=== PATIENT | male | born 1950 | race Caucasian/White ===

== ENCOUNTER 2016-08-03 17:17 | Inpatient (IN) | payer OTHER ==
[2016-08-03 17:39] VITALS: BMI 51.5
[2016-08-03] MEDS ORDERED: VANCOMYCIN 1,000 MG in DEXTROSE 5%-WATER - 250 ML IVPB ONE (19:34)
[2016-08-03] MEDS ORDERED: SODIUM CHLORIDE 500 ML IV STA (19:34)
[2016-08-03] MEDS ORDERED: VANCOMYCIN 1 GRAM (PRE-DOCKED) 250 ML IVPB ONE (19:39)
[2016-08-03 20:25] LABS: BASOPHIL 1.5 % (0-2.0); EOSINOPHIL 5.1 % (0-4.5); MCH 27.1 pg (25.7-33.7); MCHC 32.3 g/dl (32.0-35.9); MEAN PLT VOLUME 7.3 fl (7.5-11.1); NEUTROPHILS 65.8 % (42.8-82.8); PLATELET COUNT 376 K/MM3 (134-434); RDW 15.3 % (11.9-15.9); WHITE BLOOD COUNT 10.2 K/mm3 (4.0-10.0)
--- NOTE | 2016-08-03 20:43 | PDOC ---
History of Present Illness - General Chief Complaint: Wound Stated Complaint: ADMIT Time Seen by Provider: 08/03/16 19:20 History Source: Patient Exam Limitations: No Limitations - History of Present Illness Initial Comments: 08/03/16 20:37 66yo Male patient w/ PmHx: DM (borderline), Triple Bypass (2012), Obesity, HLD, Left foot ulcer 1.5 years presents to ED c/o needing admission for foot ulcers. Patient states he was recently admitted for 5 days and discharged from [facility]. While following up with wound care, patient reports Dr. Gonzales sent him to ED for admission. While at [facility] patient had surgical intervention to remove infected tissue (debridement). Patient reports that Dr. Gonzales is also concerned with newly developed ulcer to left small toe (dorsal aspect). Patient denies fever, cough, congestion, or any other complaints at this time. Wound Care- Dr. Gonzales Surgeon [facility]- Dr. Anglin Occurred: reports: other (Ongoing) Severity: Yes: moderate Lower Extremity Pain Location: left: 5th toe, heel Method of Injury: No: unknown, assault, burn, direct blow, fell, incised, motor vehicle accident, sports injury, twisted, other Modifying Factors: worse with: None, cold therapy, immobilization, pain medication, rest, other Lower Ext. Injury Location - Specific Injury Location Foot: right foot normal inspection, left foot soft tissue tenderness, left foot infection, left foot swelling, bilateral foot no evidence of injury, bilateral foot normal range of motion, bilateral foot non-tender Extremity Pain Location - Extremity Pain Location Extremity Pain Locations: left: 5th toe (Quarter size ulcer), heel (3x3 large ulcer) Past History - Travel Traveled outside of the country in the last 30 days: No Close contact w/someone who was outside of country & ill: No - Past Medical History Allergies/Adverse Reactions: Allergies Allergy/AdvReac Type Severity Reaction Status Date / Time No Known Allergies Allergy Verified 08/03/16 17:38 Home Medications: Ambulatory Orders Unobtainable 08/03/16 Anemia: No Asthma: No Cancer: No Cardiac Disorders: Yes (triple bypass 10/2011) CVA: No COPD: No CHF: No Dementia: No Diabetes: Yes (diet controlled) GI Disorders: No Disorders: No HTN: Yes Hypercholesterolemia: Yes Liver Disease: No Suicide Attempt (Hx): No Seizures: No Thyroid Disease: No - Surgical History Abdominal Surgery: No Appendectomy: No Cardiac Surgery: Yes (triple bypass) Cholecystectomy: No Lung Surgery: No Neurologic Surgery: No Orthopedic Surgery: Yes (arthroscopic lt knee sx) - Psycho/Social/Smoking Cessation Hx Anxiety: No Suicidal Ideation: No Smoking Status: Yes Smoking History: Current every day smoker Have you smoked in the past 12 months: Yes Number of Cigarettes Smoked Daily: 20 If you are a former smoker, when did you quit?: 1 week ago 10/2011 Information on smoking cessation initiated: No 'Breaking Loose' booklet given: 01/21/12 Hx Alcohol Use: No Drug/Substance Use Hx: No Substance Use Type: None Hx Substance Use Treatment: No Review of Systems - Review of Systems Able to Perform ROS?: Yes Is the patient limited Bulgarian proficient: No Constitutional: No: Chills, Fever Integumentary: Yes: Dryness, Erythema, Other (Lt foot Wound Ulcers noted to small toe and heel). No: Rash All Other Systems: Reviewed and Negative *Physical Exam - Vital Signs Last Vital Signs Temp Pulse Resp BP Pulse Ox 98.0 F 76 20 110/72 97 08/03/16 17:33 08/03/16 17:33 08/03/16 17:33 08/03/16 17:33 08/03/16 17:33 - Physical Exam General Appearance: Yes: Nourished, Appropriately Dressed. No: Apparent Distress, Mild Distress, Moderate Distress Neck: positive: Trachea midline, Supple. negative: Stridor, Lymphadenopathy (R) , Lymphadenopathy (L) Respiratory/Chest: positive: Lungs Clear, Normal Breath Sounds. negative: Chest Tender, Respiratory Distress, Accessory Muscle Use, Labored Respiration, Rapid RR Cardiovascular: positive: Regular Rhythm, Regular Rate Gastrointestinal/Abdominal: positive: Normal Bowel Sounds, Soft, Distended. negative: Tender, Guarding, Rebound, Tenderness Musculoskeletal: positive: Normal Inspection. negative: CVA Tenderness Extremity: positive: Normal Capillary Refill, Normal Inspection, Normal Range of Motion. negative: Pedal Edema, Swelling, Calf Tenderness, Erythema, Inflammation Integumentary: positive: Normal Color, Dry, Warm, Other (See HPI) Neurologic: positive: inspector automatic typewriter II-XII NML intact, Fully Oriented, Alert, Normal Mood/ Affect, Normal Response, Motor Strength / ED Treatment Course - LABORATORY CBC & Chemistry Diagram: 08/03/16 20:15 08/03/16 20:15 *DC/Admit/Observation/Transfer Diagnosis at time of Disposition: Local infection of wound Cellulitis Qualifiers: Site of cellulitis: extremity Site of cellulitis of extremity: lower extremity Laterality: left Qualified Code(s): L03.116 - Cellulitis of left lower limb - Discharge Dispostion Condition at time of disposition: Fair Admit: Yes
[2016-08-03 21:16] LABS: ALBUMIN 3.5 g/dl (3.4-5.0); ANION GAP 9 (8-16); CALCIUM 9.1 mg/dL (8.5-10.1); CO2 29 mmol/L (21-32); COCKROFT - GAULT 218.44; CREATININE 0.8 mg/dL (0.7-1.3); GLUCOSE,RANDOM 109 mg/dL (74-106); SGOT/AST 13 U/L (15-37); SGPT/ALT 26 U/L (12-78)
[2016-08-03 21:18] LABS: ALK PHOS 75 U/L (45-117); BILIRUBIN,TOTAL 0.5 mg/dL (0.2-1.0); TOT PROT 7.5 g/dl (6.4-8.2)
[2016-08-04] MEDS: AMPICILLIN NA/SULBACTAM NA 3 GM in SODIUM CHLORIDE 100 ML IVPB SCH ×2 (00:28→03:26)
--- NOTE | 2016-08-04 00:57 | HP ---
CHIEF COMPLAINT: left foot wound PCP: none; [facility] HISTORY OF PRESENT ILLNESS: This is a 66 year old male with a past medical history of HTN, HLD, CAD, borderline DM (on no meds) who presents to the ED from wound clinic. Pt was seen by Dr. Evans who felt that pt should be admitted for wound to Left 5th toe. Pt was recently admitted at [facility] from 07/25-07/30 for wound to left heel which was debrided. It is unclear if the 5th toe wound was debrided as well. Pt denies pain to foot or wounds. ER course was notable for: (1) WBC 10.2 Recent Travel: pt denies PAST MEDICAL HISTORY: HTN HLD CAD DM morbid obesity L foot ulcer x 1.5y PAST SURGICAL HISTORY: 3v CABG 2012 L knee arthoscopy Social History: Smoking: previous Alcohol: pt denies Drugs: pt denies Allergies No Known Allergies Allergy (Verified 08/03/16 17:38) HOME MEDICATIONS: unknown- pt states he takes a pill for his cholesterol, another for his BP, ASA 81mg and a "blood thinner" Attempted to call pt pharmacy to obtain current list, but Rx is closed. REVIEW OF SYSTEMS CONSTITUTIONAL: Absent: fever, chills, diaphoresis, generalized weakness, malaise, loss of appetite, weight change HEENT: Absent: rhinorrhea, nasal congestion, throat pain, throat swelling, difficulty swallowing, mouth swelling, ear pain, eye pain, visual changes CARDIOVASCULAR: Absent: chest pain, syncope, palpitations, irregular heart rate, lightheadedness , peripheral edema RESPIRATORY: Absent: cough, shortness of breath, dyspnea with exertion, orthopnea, wheezing, stridor, hemoptysis GASTROINTESTINAL: Absent: abdominal pain, abdominal distension, nausea, vomiting, diarrhea, constipation, melena, hematochezia GENITOURINARY: Absent: dysuria, frequency, urgency, hesitancy, hematuria, flank pain, genital pain MUSCULOSKELETAL: Absent: myalgia, arthralgia, joint swelling, back pain, neck pain SKIN: Present: wound to left foot Absent: rash, itching, pallor HEMATOLOGIC/IMMUNOLOGIC: Absent: easy bleeding, easy bruising, lymphadenopathy, frequent infections ENDOCRINE: Absent: unexplained weight gain, unexplained weight loss, heat intolerance, cold intolerance NEUROLOGIC: Absent: headache, focal weakness or paresthesias, dizziness, unsteady gait, seizure, mental status changes, bladder or bowel incontinence PSYCHIATRIC: Absent: anxiety, depression, suicidal or homicidal ideation, hallucinations. PHYSICAL EXAMINATION Vital Signs - 24 hr 3 08/03/16 08/03/16 17:33 19:19 Temperature 98.0 F Pulse Rate 76 Respiratory 20 Rate Blood Pressure 110/72 O2 Sat by Pulse 97 97 Oximetry (%) GENERAL: Awake, alert, and fully oriented, in no acute distress. HEAD: Normal with no signs of trauma. EYES: Pupils equal, round and reactive to light, extraocular movements intact, sclera anicteric, conjunctiva clear. No lid lag. EARS, NOSE, THROAT: Ears normal, nares patent, oropharynx clear without exudates. Moist mucous membranes. NECK: Normal range of motion, supple without lymphadenopathy, JVD, or masses. LUNGS: Breath sounds equal, clear to auscultation bilaterally. No wheezes, and no crackles. No accessory muscle use. HEART: Regular rate and rhythm, normal S1 and S2 without murmur, rub or gallop. ABDOMEN: + obese, Soft, nontender, not distended, normoactive bowel sounds, no guarding, no rebound, no masses. No hepatomegaly or splenomegaly. MUSCULOSKELETAL: Normal range of motion at all joints. No bony deformities or tenderness. No CVA tenderness. UPPER EXTREMITIES: 2+ pulses, warm, well-perfused. No cyanosis. No clubbing. No peripheral edema. LOWER EXTREMITIES: 2+ pulses, warm, well-perfused. No calf tenderness. 1+ edema LLE. no edema right. Left foot with ulcer to heel, 3.7cm x 3.0cm x 0.3cm, + granulation tissue, no necrotic tissue, left 5th toe: 1.5 x 1.6 x 0.5cm, + slough covering wound, bone exposed, + serosanguinous dc, no foul odor. surrounding skin with slight erythema. pedal pulses not palpable, As per wound note, present on doppler. NEUROLOGICAL: Cranial nerves II-XII intact. Normal speech. Normal gait. PSYCHIATRIC: Cooperative. Good eye contact. Appropriate mood and affect. SKIN: Warm, dry, normal turgor, no rashes or lesions noted, normal capillary refill. Laboratory Results - last 24 hr 3 08/03/16 08/03/16 20:15 20:15 WBC 10.2 H D RBC 5.61 H Hgb 15.2 Hct 47.1 MCV 84.0 MCHC 32.3 RDW 15.3 Plt Count 376 MPV 7.3 L Neutrophils % 65.8 Lymphocytes % 20.2 Monocytes % 7.4 Eosinophils % 5.1 H Basophils % 1.5 Sodium 136 Potassium 4.6 Chloride 98 Carbon Dioxide 29 Anion Gap 9 BUN 21 H Creatinine 0.8 D Creat Clearance w eGFR > 60 Random Glucose 109 H D Calcium 9.1 Total Bilirubin 0.5 AST 13 L D ALT 26 D Alkaline Phosphatase 75 Total Protein 7.5 Albumin 3.5 ASSESSMENT/PLAN: 66yM with PMH HTN, HLD, CAD, borderline DM presented to ED with chronic left foot heel ulcer and relatively new 5th toe wound. He is being admitted for further treatment. Left foot wound, 5th toe & heel - calcium alginate dressing to toe as recommended by podiatry - hydrogel to heel (if available) if not, wet to dry dressing - xray to r/o osteo - podiatry and vascular consultations - unasyn and vancomycin, ID consult HTN/HLD/CAD - will need to call [facility] ([phone]) in am to obtain list of medications. - cont ASA 81mg for now borderline DM - A1C in am - FSBS TIDAC and HS with novolog sliding scale. DVT PPX - heparin 5000u TID FEN - tolerating po fluids, defer IV - repeat labs in am - diabetic low sodium diet as tolerated Dispo: Pt currently requires inpatient care for management of his emergent condition and is expected to stay > 48h Visit type - Emergency Visit Emergency Visit: Yes ED Registration Date: 08/03/16 Care time: The patient presented to the Emergency Department on the above date and was hospitalized for further evaluation of their emergent condition. - New Patient This patient is new to me today: Yes Date on this admission: 08/04/16 - Critical Care Critical Care patient: No
--- NOTE | 2016-08-04 01:30 | PDOC ---
*Physical Exam - Vital Signs Last Vital Signs Temp Pulse Resp BP Pulse Ox 98.0 F 76 20 110/72 97 08/03/16 17:33 08/03/16 17:33 08/03/16 17:33 08/03/16 17:33 08/03/16 19:19 ED Treatment Course - LABORATORY CBC & Chemistry Diagram: 08/03/16 20:15 08/03/16 20:15 - ADDITIONAL ORDERS Additional order review: Laboratory Results 08/03/16 20:15 Sodium 136 Potassium 4.6 Chloride 98 Carbon Dioxide 29 Anion Gap 9 BUN 21 H Creatinine 0.8 D Creat Clearance w eGFR > 60 Random Glucose 109 H D Calcium 9.1 Total Bilirubin 0.5 AST 13 L D ALT 26 D Alkaline Phosphatase 75 Total Protein 7.5 Albumin 3.5 08/03/16 20:15 RBC 5.61 H MCV 84.0 MCHC 32.3 RDW 15.3 MPV 7.3 L Neutrophils % 65.8 Lymphocytes % 20.2 Monocytes % 7.4 Eosinophils % 5.1 H Basophils % 1.5 - Medications Given in the ED: ED Medications Discontinued Medications Generic Name Dose Route Start Last Admin Trade Name Freq PRN Reason Stop Dose Admin Sodium Chloride 500 mls @ 500 mls/hr 08/03/16 19:34 08/03/16 19:35 Normal Saline - IV 08/03/16 20:33 500 mls/hr ASDIR STA Administration Vancomycin HCl 1,000 mg/ 250 mls @ 250 mls/hr 08/03/16 19:34 08/03/16 19:35 Dextrose IVPB 08/03/16 20:33 250 mls/hr ONCE ONE Administration Protocol Medical Decision Making - Medical Decision Making 08/04/16 01:30 agree with care from JUANCARLOS Banks *DC/Admit/Observation/Transfer Diagnosis at time of Disposition: Wound infection Cellulitis Qualifiers: Site of cellulitis: extremity Site of cellulitis of extremity: lower extremity Laterality: left Qualified Code(s): L03.116 - Cellulitis of left lower limb - Discharge Dispostion Condition at time of disposition: Fair
[2016-08-04] MEDS ORDERED: HEPARIN NA (PORCINE) 5,000 UNITS/ML 1ML VIAL ONE (06:18)
[2016-08-04] MEDS: HEPARIN NA (PORCINE) 5,000 UNITS/ML 1ML VIAL SQ SCH ×3 (06:24→21:23)
[2016-08-04] MEDS: INSULIN SLIDING SCALE (NOVOLOG) 1 VIAL SQ SCH ×4 (06:25→21:22)
[2016-08-04 06:47] LABS: BASOPHIL 0.7 % (0-2.0); EOSINOPHIL 6.7 % (0-4.5); MCH 27.8 pg (25.7-33.7); MCHC 32.5 g/dl (32.0-35.9); MEAN CELL VOLUME 85.4 fl (80-96); MEAN PLT VOLUME 6.9 fl (7.5-11.1); NEUTROPHILS 65.3 % (42.8-82.8); PLATELET COUNT 299 K/MM3 (134-434); RDW 14.6 % (11.9-15.9); WHITE BLOOD COUNT 7.3 K/mm3 (4.0-10.0)
[2016-08-04 07:12] LABS: CALCIUM 8.5 mg/dL (8.5-10.1); COCKROFT - GAULT 218.44; CREATININE 0.8 mg/dL (0.7-1.3); PHOSPHOROUS 3.4 mg/dL (2.5-4.9)
--- NOTE | 2016-08-04 07:46 | PN ---
Progress Note (short form) - Note Progress Note: Podiatry Note Patient seen and evaluated yesterday in wound care clinic ( see note dated ) Patient has two wounds on his left foot: 1) 5th toe with bone exposed ( clinical OM) and 2)on his heel. Both wounds had no drainge no mal odor no crepitus Vital Signs Period Temp Pulse Resp BP Sys/Gomes Pulse Ox Last 24 Hr 97.8 F-98.0 F 62-76 18-20 110-130/72-75 96-97 Laboratory Last Values WBC 7.3 K/mm3 (4.0-10.0) 08/04/16 06:20 RBC 5.28 M/mm3 (4.00-5.60) 08/04/16 06:20 Hgb 14.7 GM/dL (11.7-16.9) 08/04/16 06:20 Hct 45.0 % (35.4-49) 08/04/16 06:20 MCV 85.4 fl (80-96) 08/04/16 06:20 MCHC 32.5 g/dl (32.0-35.9) 08/04/16 06:20 RDW 14.6 % (11.9-15.9) 08/04/16 06:20 Plt Count 299 K/MM3 (134-434) D 08/04/16 06:20 MPV 6.9 fl (7.5-11.1) L 08/04/16 06:20 Neutrophils % 65.3 % (42.8-82.8) 08/04/16 06:20 Lymphocytes % 18.3 % (8-40) 08/04/16 06:20 Monocytes % 9.0 % (3.8-10.2) 08/04/16 06:20 Eosinophils % 6.7 % (0-4.5) H 08/04/16 06:20 Basophils % 0.7 % (0-2.0) 08/04/16 06:20 Sodium 137 mmol/L (136-145) 08/04/16 06:20 Potassium 4.4 mmol/L (3.5-5.1) 08/04/16 06:20 Chloride 101 mmol/L (98-107) 08/04/16 06:20 Carbon Dioxide 29 mmol/L (21-32) 08/04/16 06:20 Anion Gap 7 (8-16) L 08/04/16 06:20 BUN 19 mg/dL (7-18) H 08/04/16 06:20 Creatinine 0.8 mg/dL (0.7-1.3) 08/04/16 06:20 Creat Clearance w eGFR > 60 (>60) 08/03/16 20:15 POC Glucometer 135.17331 UNITS (()) 08/04/16 06:24 Random Glucose 112 mg/dL (74-106) H 08/04/16 06:20 Calcium 8.5 mg/dL (8.5-10.1) 08/04/16 06:20 Phosphorus 3.4 mg/dL (2.5-4.9) 08/04/16 06:20 Magnesium 2.0 mg/dL (1.8-2.4) 08/04/16 06:20 Total Bilirubin 0.5 mg/dL (0.2-1.0) 08/03/16 20:15 AST 13 U/L (15-37) L D 08/03/16 20:15 ALT 26 U/L (12-78) D 08/03/16 20:15 Alkaline Phosphatase 75 U/L (45-117) 08/03/16 20:15 Total Protein 7.5 g/dl (6.4-8.2) 08/03/16 20:15 Albumin 3.5 g/dl (3.4-5.0) 08/03/16 20:15 A/P 1) Wound cultures 2) IV Abx as per Infxs Dz 3) Foot Xray left foot - order written 4) Collagenase both wounds daily - order written 5) Vasc consult Dr Toni Gomez
--- NOTE | 2016-08-04 07:50 | PN ---
Progress Note (short form) - Note Progress Note: ID Full note dictated Send from wound care Selected Entries 08/04/16 06:43 Temperature 97.8 F Pulse Rate [ 62 Left] Respiratory 18 Rate Blood Pressure 130/75 [Left Arm] LLE ulcer with serosanguinous drainage surrounding erythema DEEP Microbiology Laboratory Tests 08/03/16 08/04/16 20:15 06:20 WBC 10.2 H D Hgb 15.2 Plt Count 376 BUN 19 H Creatinine 0.8 Random Glucose 112 H Assessment Diabetic foot ulcer wit osteomyelitis Plan Vanco based on body weight along with Zosyn ESR CRP Dr Quan to see and evaluate for debridement MRI ? Kiko CEE
--- NOTE | 2016-08-04 08:35 | CONS ---
DATE OF CONSULTATION: DATE OF DICTATION: 08/04/2016 INFECTIOUS DISEASE CONSULTATION HISTORY OF PRESENT ILLNESS: This is a 66-year-old, diabetic, morbidly obese gentleman referred from the Wound Clinic for evaluation of a wound of the left 5th toe and the left heel. He was apparently seen by Dr. Quan, who felt he should be admitted for further hospital management. Of note is that the patient was treated July 25 to July 30 at [facility] for the same left heel wound, which was apparently debrided at that time. It is unclear as to whether or not an MRI may have been done or what other workup may have been done. He has no fever or chills here, and his white count is 10.2. He has no localizing complaints. PAST MEDICAL HISTORY: Includes hypertension, hyperlipidemia, coronary artery disease, diabetes, morbid obesity and chronic left foot ulcer. PAST SURGICAL HISTORY: Status post CABG in 2011, and history of left knee arthroscopy. MEDICATIONS: Medications include insulin. ALLERGIES: None known. SOCIAL HISTORY: No recent travel. Current every day smoker. No history of substance abuse. HIV status unknown. FAMILY HISTORY: Reviewed and noncontributory. REVIEW OF SYSTEMS: Respiratory: No cough, shortness of breath, hemoptysis. Cardiac: No chest pain, palpitations, syncope or murmur. History of CABG. Gastrointestinal: No abdominal pain, vomiting, nausea, diarrhea. Genitourinary: No dysuria, hematuria, urinary frequency or incontinence. Neuromuscular: No headaches, seizures, visual complaints, joint pains. PHYSICAL EXAMINATION: Vital Signs: His admitting temperature was 98, pulse 76, respirations 20, blood pressure 110/72, pulse oximetry 97%. Neck: Supple, without adenopathy. Lungs: Clear to percussion and auscultation. Heart: S1, S2. Regular rhythm, without murmur. Abdomen: Soft, nontender. Positive bowel sounds. Not distended. No organomegaly. Neurologic: Cranial nerves intact. Extremities: Left lower extremity with a heel ulcer measuring 4 x 3 cm, with granulation tissue, without necrosis. Left 5th toe 1.5 x 1.6 x 0.5-cm wound with exposed bone, serosanguineous drainage. No foul odor noted. Surrounding erythema. DIAGNOSTIC STUDIES: White count 10.2, hemoglobin 15.2, platelets 376. Creatinine 0.8, creatinine clearance greater than 60. Liver enzymes within normal limits. ASSESSMENT: A 66-year-old male with multiple comorbidities, including diabetes and morbid obesity, with coronary artery disease, who presents with left foot wounds , left 5th toe and heel, with a deep wound to bone, osteomyelitis likely, with surrounding cellulitis, recent admission to [facility] for debridement. Unsure of what workup may have been done at that time for osteomyelitis. RECOMMENDATIONS: I would empirically treat him with vancomycin based on body weight, and piperacillin/tazobactam. Obtain a sedimentation rate and CRP, and MRI of the foot. Surgical reevaluation with Dr. Quan regarding need for further surgical management intervention. May have to treat for osteomyelitis given deep wound to bone MARY ORDOÑEZ M.D. SEVERO/[id number] MTDD
[2016-08-04] MEDS: PIPERACILLIN/TAZOB 4.5 GM 100 ML IVPB SCH ×2 (11:45→17:59)
[2016-08-04] MEDS ORDERED: CARVEDILOL 3.125 MG TABLET (FP) ONE (11:47)
[2016-08-04] MEDS: LISINOPRIL 5 MG TABLET (FP) PO SCH (11:48)
[2016-08-04] MEDS ORDERED: LISINOPRIL 5 MG TABLET (FP) ONE (11:48)
[2016-08-04] MEDS: CARVEDILOL 6.25 MG TABLET (FP) PO SCH ×2 (11:48→21:23)
[2016-08-04] MEDS ORDERED: ASPIRIN COATED 81 MG TABLET.EC ONE (11:48)
[2016-08-04] MEDS: ASPIRIN COATED 81 MG TABLET.EC PO SCH (11:48)
[2016-08-04] MEDS: VANCOMYCIN 1,500 MG in DEXTROSE 5%-WATER - 500 ML IVPB SCH ×2 (12:51→22:09)
--- NOTE | 2016-08-04 13:05 | EKG ---
Test Reason : Blood Pressure : / mmHG Vent. Rate : 069 BPM Atrial Rate : 069 BPM P-R Int : 238 ms QRS Dur : 126 ms QT Int : 436 ms P-R-T Axes : 069 -22 090 degrees QTc Int : 467 ms POOR DATA QUALITY, INTERPRETATION MAY BE ADVERSELY AFFECTED SINUS RHYTHM WITH 1ST DEGREE A-V BLOCK INFERIOR INFARCT , AGE UNDETERMINED ABNORMAL ECG Confirmed by JIE CEE, GIGI ([id number]) on 08/04/2016 1:05:30 PM Referred By: Confirmed By:GIGI CERON MD
[2016-08-04] MEDS: COLLAGENASE CLOSTRIDIUM HIST. 30 GRAMS TUBE TP SCH (15:56)
--- NOTE | 2016-08-04 17:50 | CONSULT ---
Consult - Alcohol/Substance Use Hx Alcohol Use: No - Smoking History Smoking history: Current every day smoker Have you smoked in the past 12 months: Yes Aproximately how many cigarettes per day: 20 If you are a former smoker, when did you quit?: 1 week ago 10/2011 Home Medications - Allergies Allergies/Adverse Reactions: Allergies Allergy/AdvReac Type Severity Reaction Status Date / Time No Known Allergies Allergy Verified 08/03/16 17:38 - Home Medications Home Medications: Ambulatory Orders Amox-Tr/K Cl [Augmentin - 875Mg Tablet] 1 tab PO BID 08/04/16 Carvedilol [Coreg -] 6.25 mg PO Q12H 08/04/16 Lisinopril 5 mg PO DAILY 08/04/16 Simvastatin 40 mg PO DAILY 08/04/16 Physical Exam Vital Signs: Vital Signs Temperature 98.0 F 08/04/16 13:35 Pulse Rate 61 08/04/16 13:35 Respiratory Rate 20 08/04/16 13:35 Blood Pressure 120/70 08/04/16 13:35 O2 Sat by Pulse Oximetry (%) 95 08/04/16 13:46 Labs: CBC, BMP 08/04/16 06:20 08/04/16 06:20 Assessment/Plan Vascular Surgery This is a 66 year old male with a past medical history of HTN, HLD, CAD, borderline DM (on no meds) who presents to the ED from wound clinic. Pt was seen by Dr. Evans who felt that pt should be admitted for wound to Left 5th toe. Pt was recently admitted at [facility] from 07/25-07/30 for wound to left heel which was debrided. It is unclear if the 5th toe wound was debrided as well. Pt denies pain to foot or wounds. ER course was notable for: (1) WBC 10.2 Recent Travel: pt denies PAST MEDICAL HISTORY: HTN HLD CAD DM morbid obesity L foot ulcer x 1.5y PAST SURGICAL HISTORY: 3v CABG 2011 L knee arthoscopy PE Head - NC/At Lung - cTA Heart - RRR abd - soft,nt,nd ext - Left foot -- heel and 5th toe ulcer with bone exposed. Palpable PT pulse, no dP pulse. A/P Santyl to all wounds. Probably osteo of left 5th toe. MRI is ordered. Will order CTA to look at runoff into foot Pt is a current smoker. Will need HBO as outpt. Might need angiogram depending on what CTA shows. Bienvenido Gomez DO
--- NOTE | 2016-08-04 18:15 | PN ---
Physical Exam: SUBJECTIVE: Patient seen and examined in bed. OBJECTIVE: Vital Signs 3 Period Temp Pulse Resp BP Sys/Gomes Pulse Ox Last 24 Hr 97.8 F-98.3 F 61-72 18-22 112-140/60-81 95-97 GENERAL: The patient is awake, alert, and fully oriented, in no acute distress. HEAD: Normal with no signs of trauma. EYES: PERRL, extraocular movements intact, sclera anicteric, conjunctiva clear. No ptosis. ENT: Ears normal, nares patent, oropharynx clear without exudates, moist mucous membranes. NECK: Trachea midline, full range of motion, supple. LUNGS: Breath sounds equal, clear to auscultation bilaterally, no wheezes, no crackles, no accessory muscle use. HEART: Regular rate and rhythm, S1, S2 without murmur, rub or gallop. ABDOMEN: Soft, nontender, nondistended, normoactive bowel sounds, no guarding, no rebound, no hepatosplenomegaly, no masses. Obese abdomen. EXTREMITIES: 2+ posterior tibial pulses. Doppler pulses on dorsalis pedis bilaterally. warm, well-perfused, no edema. Open 1cm circular ulcer to left 5th digit on foot. Exposed bone at center of wound s/p debridement at OSH. No drainage noted. Granulated tissue present. 2cm circular wound noted to plantar surface of left heel. No drainage noted. Granulated tissue present. NEUROLOGICAL: Cranial nerves II through XII grossly intact. Normal speech, gait not observed. PSYCH: Normal mood, normal affect. SKIN: Warm, dry, normal turgor, no rashes or lesions noted. Open 1cm circular ulcer to left 5th digit on foot. Exposed bone at center of wound s/p debridement at OSH. No drainage noted. Granulated tissue present. 2cm circular wound noted to plantar surface of left heel. No drainage noted. Granulated tissue present. Laboratory Results - last 24 hr 3 08/04/16 08/04/16 08/04/16 01:42 06:20 06:20 WBC 7.3 RBC 5.28 Hgb 14.7 Hct 45.0 MCV 85.4 MCHC 32.5 RDW 14.6 Plt Count 299 D MPV 6.9 L Neutrophils % 65.3 Lymphocytes % 18.3 Monocytes % 9.0 Eosinophils % 6.7 H Basophils % 0.7 Sodium 137 Potassium 4.4 Chloride 101 Carbon Dioxide 29 Anion Gap 7 L BUN 19 H Creatinine 0.8 POC Glucometer Random Glucose 112 H Hemoglobin A1c % 6.3 H Calcium 8.5 Phosphorus 3.4 Magnesium 2.0 C-Reactive Protein 3 08/04/16 08/04/16 08/04/16 06:20 06:24 12:43 WBC RBC Hgb Hct MCV MCHC RDW Plt Count MPV Neutrophils % Lymphocytes % Monocytes % Eosinophils % Basophils % Sodium Potassium Chloride Carbon Dioxide Anion Gap BUN Creatinine POC Glucometer 135.08378 114.52606 Random Glucose Hemoglobin A1c % Calcium Phosphorus Magnesium C-Reactive Protein Cancelled 3 08/04/16 16:20 WBC RBC Hgb Hct MCV MCHC RDW Plt Count MPV Neutrophils % Lymphocytes % Monocytes % Eosinophils % Basophils % Sodium Potassium Chloride Carbon Dioxide Anion Gap BUN Creatinine POC Glucometer 166 Random Glucose Hemoglobin A1c % Calcium Phosphorus Magnesium C-Reactive Protein Active Medications 3 Generic Name Dose Route Start Last Admin Trade Name Freq PRN Reason Stop Dose Admin Aspirin 81 mg 08/04/16 10:00 08/04/16 11:48 Ecotrin - PO 81 mg DAILY DIXIE Administration Carvedilol 6.25 mg 08/04/16 10:00 08/04/16 11:48 Coreg - PO 6.25 mg BID DIXIE Administration Collagenase 1 applic 08/04/16 10:00 08/04/16 15:56 Santyl - TP 1 applic DAILY DIXIE Administration Heparin Sodium (Porcine) 5,000 unit 08/04/16 06:00 08/04/16 13:38 Heparin - SQ 5,000 unit TID DIXIE Administration Vancomycin HCl 1,500 mg/ 500 mls @ 250 mls/hr 08/04/16 10:00 08/04/16 12:51 Dextrose IVPB 250 mls/hr BID DIXIE Administration Protocol Piperacillin Sod/Tazobactam Sod 100 mls @ 200 mls/hr 08/04/16 10:00 08/04/16 17 :59 Zosyn 4.5gm Ivpb (Pre-Docked) IVPB 200 mls/hr Q8H-IV DIXIE Administration Protocol Insulin Aspart 1 vial 08/04/16 07:00 08/04/16 16:24 Novolog Vial Sliding Scale - SQ 2 units ACHS DIXIE Administration Protocol Lisinopril 5 mg 08/04/16 10:00 08/04/16 11:48 Prinivil PO 5 mg DAILY DIXIE Administration ASSESSMENT/PLAN: A: This is a 66 yo man with h/o HTN, HLD, CAD, CABG x3v and diet controlled DM who presented to ED with clinical osteomyelitis from wound clinic. He states he had wound debridement done at [facility] "last week." P: arterial ulcers with exposed bone in left foot -continue vanc and Zosyn -ID Kiko following -CTA foot per surgery -surgery Gomez following -hyperbaric as outpatient Leukocytosis -resolved -trend CBC HTN -well controlled -continue Coreg CAD -daily ASA DM -A1c 6.4 -FS QACHS -SS for tight glycemic control F/E/N -diabetic diet Dispo- Patient currently needs continued inpatient evaluation for acute medical issues. Code Status: FULL CODE Visit type - Emergency Visit Emergency Visit: Yes ED Registration Date: 08/04/16 Care time: The patient presented to the Emergency Department on the above date and was hospitalized for further evaluation of their emergent condition. - New Patient This patient is new to me today: Yes Date on this admission: 08/05/16 - Critical Care Critical Care patient: No
[2016-08-04] MEDS ORDERED: PICC LINE 8 ML FLUSH PROTOCOL IVPUSH PRN (19:17)
[2016-08-05] MEDS: PIPERACILLIN/TAZOB 4.5 GM 100 ML IVPB SCH ×3 (01:39→17:26)
[2016-08-05] MEDS: HEPARIN NA (PORCINE) 5,000 UNITS/ML 1ML VIAL SQ SCH ×3 (06:00→21:25)
[2016-08-05] MEDS: INSULIN SLIDING SCALE (NOVOLOG) 1 VIAL SQ SCH ×4 (06:02→21:18)
[2016-08-05 08:25] LABS: BASOPHIL 0.9 % (0-2.0); EOSINOPHIL 6.5 % (0-4.5); MCH 27.6 pg (25.7-33.7); MCHC 32.6 g/dl (32.0-35.9); MEAN CELL VOLUME 84.9 fl (80-96); MEAN PLT VOLUME 7.4 fl (7.5-11.1); NEUTROPHILS 65.2 % (42.8-82.8); PLATELET COUNT 316 K/MM3 (134-434); WHITE BLOOD COUNT 7.5 K/mm3 (4.0-10.0)
[2016-08-05 09:14] LABS: ALBUMIN 3.5 g/dl (3.4-5.0); ALK PHOS 66 U/L (45-117); ANION GAP 9 (8-16); BILIRUBIN,TOTAL 0.5 mg/dL (0.2-1.0); CALCIUM 9.1 mg/dL (8.5-10.1); CO2 29 mmol/L (21-32); COCKROFT - GAULT 218.44; CREATININE 0.8 mg/dL (0.7-1.3); GLUCOSE,RANDOM 104 mg/dL (74-106); SGOT/AST 11 U/L (15-37); SGPT/ALT 23 U/L (12-78); TOT PROT 7.2 g/dl (6.4-8.2)
[2016-08-05 09:33] LABS: C-REACTIVE PROTEIN 2.3 MG/DL (0.00-0.3)
[2016-08-05] MEDS: ASPIRIN COATED 81 MG TABLET.EC PO SCH (09:40)
[2016-08-05] MEDS: LISINOPRIL 5 MG TABLET (FP) PO SCH (09:40)
[2016-08-05] MEDS: CARVEDILOL 6.25 MG TABLET (FP) PO SCH ×2 (09:40→21:25)
[2016-08-05] MEDS: VANCOMYCIN 1,500 MG in DEXTROSE 5%-WATER - 500 ML IVPB SCH (09:41)
[2016-08-05] MEDS: COLLAGENASE CLOSTRIDIUM HIST. 30 GRAMS TUBE TP SCH (09:42)
--- NOTE | 2016-08-05 13:56 | PN ---
Progress Note (short form) - Note Progress Note: ID vancomycin and Zosyn day 1 Vascular surgery note reviewed Selected Entries 08/05/16 06:00 Temperature 97.5 F L Pulse Rate 55 L Respiratory 20 Rate Blood Pressure 112/61 Footulcers left 5th toe and plantar foot Microbiology 08/04/16 01:36 Foot - Left Lateral Wound Culture - Preliminary NO GROWTH OBTAINED AFTER 24 HOURS INCUBATION, REINCUBATED. 08/04/16 01:36 Foot - Left Heel Wound Culture - Preliminary Staphylococcus Coagulase Neg 08/03/16 20:15 Blood - Peripheral Venous Blood Culture - Preliminary NO GROWTH OBTAINED AFTER 24 HOURS, INCUBATION TO CONTINUE FOR 4 DAYS. 08/03/16 20:15 Blood - Peripheral Venous Blood Culture - Preliminary NO GROWTH OBTAINED AFTER 24 HOURS, INCUBATION TO CONTINUE FOR 4 DAYS. Laboratory Tests 08/05/16 08/05/16 08/05/16 06:00 07:10 07:10 WBC 7.5 Hgb 15.0 Plt Count 316 ESR 57 H C-Reactive Protein 2.3 H Assessment Foot wounds foot with osteo Plan Continue current therapy Vanco levels MRI HBO Kiko CEE
--- NOTE | 2016-08-05 14:08 | PN ---
Progress Note (short form) - Note Progress Note: Podiatry Note S/ Patient seen and evaluated has no new complaints denies pain O/ A/A/Ox3 in NAD Patient has two wounds on his left foot: 1) 5th toe with bone exposed ( clinical OM) and 2)on his heel. Both wounds had no drainge no mal odor no crepitus Vital Signs Period Temp Pulse Resp BP Sys/Gomes Pulse Ox Last 24 Hr 97.5 F-98.2 F 55-67 18-21 108-121/61-79 95 Laboratory Last Values WBC 7.5 K/mm3 (4.0-10.0) 08/05/16 07:10 RBC 5.41 M/mm3 (4.00-5.60) 08/05/16 07:10 Hgb 15.0 GM/dL (11.7-16.9) 08/05/16 07:10 Hct 45.9 % (35.4-49) 08/05/16 07:10 MCV 84.9 fl (80-96) 08/05/16 07:10 MCHC 32.6 g/dl (32.0-35.9) 08/05/16 07:10 RDW 15.0 % (11.9-15.9) 08/05/16 07:10 Plt Count 316 K/MM3 (134-434) 08/05/16 07:10 MPV 7.4 fl (7.5-11.1) L 08/05/16 07:10 Neutrophils % 65.2 % (42.8-82.8) 08/05/16 07:10 Lymphocytes % 20.5 % (8-40) 08/05/16 07:10 Monocytes % 6.9 % (3.8-10.2) 08/05/16 07:10 Eosinophils % 6.5 % (0-4.5) H 08/05/16 07:10 Basophils % 0.9 % (0-2.0) 08/05/16 07:10 ESR 57 mm/hr (0-20) H 08/05/16 06:00 Sodium 135 mmol/L (136-145) L 08/05/16 07:10 Potassium 4.7 mmol/L (3.5-5.1) 08/05/16 07:10 Chloride 97 mmol/L (98-107) L 08/05/16 07:10 Carbon Dioxide 29 mmol/L (21-32) 08/05/16 07:10 Anion Gap 9 (8-16) 08/05/16 07:10 BUN 15 mg/dL (7-18) D 08/05/16 07:10 Creatinine 0.8 mg/dL (0.7-1.3) 08/05/16 07:10 Creat Clearance w eGFR > 60 (>60) 08/05/16 07:10 POC Glucometer 128 UNITS (()) 08/05/16 10:45 Random Glucose 104 mg/dL (74-106) 08/05/16 07:10 Hemoglobin A1c % 6.3 % (4.8-6.0) H 08/04/16 01:42 Calcium 9.1 mg/dL (8.5-10.1) 08/05/16 07:10 Phosphorus 3.4 mg/dL (2.5-4.9) 08/04/16 06:20 Magnesium 2.0 mg/dL (1.8-2.4) 08/04/16 06:20 Total Bilirubin 0.5 mg/dL (0.2-1.0) 08/05/16 07:10 AST 11 U/L (15-37) L 08/05/16 07:10 ALT 23 U/L (12-78) 08/05/16 07:10 Alkaline Phosphatase 66 U/L (45-117) 08/05/16 07:10 C-Reactive Protein 2.3 MG/DL (0.00-0.3) H 08/05/16 07:10 Total Protein 7.2 g/dl (6.4-8.2) 08/05/16 07:10 Albumin 3.5 g/dl (3.4-5.0) 08/05/16 07:10 Microbiology 08/04/16 01:36 Wound Culture - Preliminary Foot - Left Lateral NO GROWTH OBTAINED AFTER 24 HOURS INCUBATION, REINCUBATED. 08/04/16 01:36 Wound Culture - Preliminary Foot - Left Heel Staphylococcus Coagulase Neg 08/03/16 20:15 Blood Culture - Preliminary Blood - Peripheral Venous NO GROWTH OBTAINED AFTER 24 HOURS, INCUBATION TO CONTINUE FOR 4 DAYS. 08/03/16 20:15 Blood Culture - Preliminary Blood - Peripheral Venous NO GROWTH OBTAINED AFTER 24 HOURS, INCUBATION TO CONTINUE FOR 4 DAYS. A/P 1) Wound cultures noted 2) IV Abx as per Infxs Dz 3) Foot X-ray left foot - reviewed no gross osseous destruction, most likely subacute OM not needing surgical management at this time 4) Wound Care Instructions: Continue Collagenase both wounds daily 5) Vasc consult noted, CTA reviewed most likely will need intervetion
--- NOTE | 2016-08-05 15:08 | PN ---
Progress Note (short form) - Note Progress Note: VAscular Surgery Pt seen and examined. CTA not officially read as of yet. Images reviewed -- pt has tibial disease in left lower ext. Will need angiogram. Please medically clear. Can do early next week. Bienvenido Gomez DO
--- NOTE | 2016-08-05 18:29 | PN ---
Physical Exam: SUBJECTIVE: Patient seen and examined. Sitting on edge of bed vigorously eating lunch. OBJECTIVE: Vital Signs Period Temp Pulse Resp BP Sys/Gomes Pulse Ox Last 24 Hr 97.5 F-98.2 F 55-62 18-20 108-153/61-80 95-95 GENERAL: The patient is awake, alert, and fully oriented, in no acute distress. HEAD: Normal with no signs of trauma. EYES: PERRL, extraocular movements intact, sclera anicteric, conjunctiva clear. No ptosis. LUNGS: Breath sounds equal, clear to auscultation bilaterally, no wheezes, no crackles, no accessory muscle use. HEART: Regular rate and rhythm, S1, S2 without murmur, rub or gallop. ABDOMEN: Obese. Soft, nontender, nondistended, normoactive bowel sounds, no guarding, no rebound EXTREMITIES: LLE swelling, both legs pale, cool; left foot has two ulcers: #1 heel: ~5cm in circumference, pink, granulating tissue in wound bed, no exudate, wound edge thickly calloused; #2 fifth digit: 1.5cmL x 1.5cm W unstageable, necrotic tissue NEUROLOGICAL: Cranial nerves II through XII grossly intact. Normal speech, gait not observed. Laboratory Results - last 24 hr 08/04/16 08/05/16 08/05/16 21:18 05:59 06:00 WBC RBC Hgb Hct MCV MCHC RDW Plt Count MPV Neutrophils % Lymphocytes % Monocytes % Eosinophils % Basophils % ESR 57 H Sodium Potassium Chloride Carbon Dioxide Anion Gap BUN Creatinine Creat Clearance w eGFR POC Glucometer 100 117 Random Glucose Calcium Total Bilirubin AST ALT Alkaline Phosphatase C-Reactive Protein B-Natriuretic Peptide Total Protein Albumin Vancomycin Trough 08/05/16 08/05/16 08/05/16 07:10 07:10 07:10 WBC 7.5 RBC 5.41 Hgb 15.0 Hct 45.9 MCV 84.9 MCHC 32.6 RDW 15.0 Plt Count 316 MPV 7.4 L Neutrophils % 65.2 Lymphocytes % 20.5 Monocytes % 6.9 Eosinophils % 6.5 H Basophils % 0.9 ESR Sodium 135 L Potassium 4.7 Chloride 97 L Carbon Dioxide 29 Anion Gap 9 BUN 15 D Creatinine 0.8 Creat Clearance w eGFR > 60 POC Glucometer Random Glucose 104 Calcium 9.1 Total Bilirubin 0.5 AST 11 L ALT 23 Alkaline Phosphatase 66 C-Reactive Protein 2.3 H B-Natriuretic Peptide 225.56 H Total Protein 7.2 Albumin 3.5 Vancomycin Trough 08/05/16 08/05/16 08/05/16 10:45 14:47 16:33 WBC RBC Hgb Hct MCV MCHC RDW Plt Count MPV Neutrophils % Lymphocytes % Monocytes % Eosinophils % Basophils % ESR Sodium Potassium Chloride Carbon Dioxide Anion Gap BUN Creatinine Creat Clearance w eGFR POC Glucometer 128 114 Random Glucose Calcium Total Bilirubin AST ALT Alkaline Phosphatase C-Reactive Protein B-Natriuretic Peptide Total Protein Albumin Vancomycin Trough 25.817 H* Active Medications Generic Name Dose Route Start Last Admin Trade Name Freq PRN Reason Stop Dose Admin Aspirin 81 mg 08/04/16 10:00 08/05/16 09:40 Ecotrin - PO 81 mg DAILY DIXIE Administration Carvedilol 6.25 mg 08/04/16 10:00 08/05/16 09:40 Coreg - PO 6.25 mg BID DIXIE Administration Collagenase 1 applic 08/04/16 10:00 08/05/16 09:42 Santyl - TP 1 applic DAILY DIXIE Administration Heparin Sodium (Porcine) 5,000 unit 08/04/16 06:00 08/05/16 14:19 Heparin - SQ 5,000 unit TID DIXIE Administration IV Flush 8 ml 08/04/16 19:17 Picc Line Flush IVPUSH PRN PRN Protocol Vancomycin HCl 1,500 mg/ 500 mls @ 250 mls/hr 08/04/16 10:00 08/05/16 09:41 Dextrose IVPB 250 mls/hr BID DIXIE Administration Protocol Piperacillin Sod/Tazobactam Sod 100 mls @ 200 mls/hr 08/04/16 10:00 08/05/16 17 :26 Zosyn 4.5gm Ivpb (Pre-Docked) IVPB 200 mls/hr Q8H-IV DIXIE Administration Protocol Insulin Aspart 1 vial 08/04/16 07:00 08/05/16 16:35 Novolog Vial Sliding Scale - SQ Not Given ACHS [facility] Protocol Lisinopril 5 mg 08/04/16 10:00 08/05/16 09:40 Prinivil PO 5 mg DAILY DIXIE Administration Microbiology 08/04/16 01:36 Foot - Left Heel Gram Stain - Final 08/04/16 01:36 Foot - Left Heel Wound Culture - Preliminary Staphylococcus Coagulase Neg 08/04/16 01:36 Foot - Left Lateral Gram Stain - Final 08/04/16 01:36 Foot - Left Lateral Wound Culture - Preliminary NO GROWTH OBTAINED AFTER 24 HOURS INCUBATION, REINCUBATED. 08/03/16 20:15 Blood - Peripheral Venous Blood Culture - Preliminary NO GROWTH OBTAINED AFTER 24 HOURS, INCUBATION TO CONTINUE FOR 4 DAYS. 08/03/16 20:15 Blood - Peripheral Venous Blood Culture - Preliminary NO GROWTH OBTAINED AFTER 24 HOURS, INCUBATION TO CONTINUE FOR 4 DAYS. ASSESSMENT/PLAN 66 year-old male with a PMH of HTN, HLD, CAD s/p multiple stents and CABG x 2 ( 2011), systolic and diastolic heart failure, NIDDM, and chronic arterial ulcers of left foot. Long history of non-compliance. Last saw a PCP 25 years ago. Had one followup visit following his 2011 CABG. Current every day smoker. Chronic arterial ulcers of left foot --admitted to [facility] 07/25-->07/30/16; left heel ulcer debrided; discussed with Dr. Davies, vascular at [facility], xray imaging of left foot did not suggest osteo; did not have an MRI during this most recent visit; had MRI of left foot in 2016 that was negative for osteo --will need further imaging to r/o osteo; problem is h/o multiple cardiac stents; poor historian, not sure how many stents, when, or where placed --ordered triple phase bone scan --wound culture +coag neg staph, likely contaminant --continue empiric Vanc (day #2) and Zosyn (day #2) Bilateral lower extremity atherosclerotic disease and stenosis --CTA of abdomen and pelvis with b/l lower extremity runoffs: (1) 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 MRI on nonemergent basis --seen and evaluated by vascular, will need angiogram; cardiology consult placed for clearance --order entered for tissue biopsy --continue ASA, statin Inguinal and iliac chain bulky adenopathy --CTA shows extensive b/l inguinal and iliac chain bulky adenopathy up to 5.4cm on left and 3.0cm on right, inflammatory/infections v. neopolastic --tissue biopsy ordered Left lower extremity swelling --US pending to r/o DVT Hypertension --BP well-controlled --continue carvedilol, lisinopril Hyperlipidemia --continue statin CAD --continue carvedilol, ASA, statin Chronic systolic and diastolic heart failure --see Dr. Lopez's consult note 10/18/11 --BNP >1,700 --bilateral lower extremity edema --08/05 echo: LV function grossly normal, RWMA cannot be excluded, EF 53%; RV not well-visualized; LA mildly dilated; trace MR; mild TR; mild AI; trivial pericardial effusion --no presently on diuretics --CXR pending F/E/N Fluids: PO intake adequate Electrolytes: replete as indicated Nutrition: diabetic, low sodium DVT prophylaxis: subq heparin PT evaluation Daily PT Dispo: continues to require inpatient care. Full Code. Visit type - Emergency Visit Emergency Visit: Yes ED Registration Date: 08/04/16 Care time: The patient presented to the Emergency Department on the above date and was hospitalized for further evaluation of their emergent condition. - New Patient This patient is new to me today: Yes Date on this admission: 08/06/16 - Critical Care Critical Care patient: No
[2016-08-05] MEDS: ATORVASTATIN CA 40 MG TABLET (FP) PO SCH (21:25)
[2016-08-06] MEDS: PIPERACILLIN/TAZOB 4.5 GM 100 ML IVPB SCH (02:42)
[2016-08-06] MEDS: INSULIN SLIDING SCALE (NOVOLOG) 1 VIAL SQ SCH ×4 (06:27→21:32)
[2016-08-06] MEDS: HEPARIN NA (PORCINE) 5,000 UNITS/ML 1ML VIAL SQ SCH ×3 (06:28→21:32)
[2016-08-06 06:58] LABS: C-REACTIVE PROTEIN 2.4 MG/DL (0.00-0.3)
[2016-08-06 07:52] LABS: BASOPHIL 0.8 % (0-2.0); EOSINOPHIL 7.7 % (0-4.5); MCH 27.6 pg (25.7-33.7); MEAN CELL VOLUME 83.8 fl (80-96); MEAN PLT VOLUME 7.3 fl (7.5-11.1); NEUTROPHILS 62.8 % (42.8-82.8); PLATELET COUNT 301 K/MM3 (134-434); RDW 14.7 % (11.9-15.9); WHITE BLOOD COUNT 7.1 K/mm3 (4.0-10.0)
--- NOTE | 2016-08-06 08:12 | PN ---
Progress Note, Physician Chief Complaint: ID Yin Rowe No complaints - Current Medication List Current Medications: Active Medications Aspirin (Ecotrin -) 81 mg PO DAILY [facility] Last Admin: 08/05/16 09:40 Dose: 81 mg Atorvastatin Calcium (Lipitor -) 40 mg PO HS [facility] Last Admin: 08/05/16 21:25 Dose: 40 mg Carvedilol (Coreg -) 6.25 mg PO BID [facility] Last Admin: 08/05/16 21:25 Dose: 6.25 mg Collagenase (Santyl -) 1 applic TP DAILY [facility] Last Admin: 08/05/16 09:42 Dose: 1 applic Heparin Sodium (Porcine) (Heparin -) 5,000 unit SQ TID [facility] Last Admin: 08/06/16 06:28 Dose: 5,000 unit Vancomycin HCl 1,500 mg/ (Dextrose) 500 mls @ 250 mls/hr IVPB BID [facility] PRN Reason: Protocol Last Admin: 08/05/16 09:41 Dose: 250 mls/hr Piperacillin Sod/Tazobactam Sod (Zosyn 4.5gm Ivpb (Pre-Docked)) 100 mls @ 200 mls/hr IVPB Q8H-IV [facility] PRN Reason: Protocol Last Admin: 08/06/16 02:42 Dose: 200 mls/hr Insulin Aspart (Novolog Vial Sliding Scale -) 1 vial SQ ACHS [facility] PRN Reason: Protocol Last Admin: 08/06/16 06:27 Dose: Not Given Lisinopril (Prinivil) 5 mg PO DAILY [facility] Last Admin: 08/05/16 09:40 Dose: 5 mg - Objective Vital Signs: Vital Signs Temperature 98.5 F 08/06/16 06:00 Pulse Rate 63 08/06/16 06:00 Respiratory Rate 18 08/06/16 06:00 Blood Pressure 115/56 08/06/16 06:00 O2 Sat by Pulse Oximetry (%) 95 08/05/16 22:00 Constitutional: Yes: Obese HENT: Yes: WNL, Atraumatic Neck: Yes: WNL, Supple Cardiovascular: Yes: Regular Rate and Rhythm, S1, S2 Respiratory: Yes: WNL, Regular, CTA Bilaterally Gastrointestinal: Yes: Soft. No: Tenderness Extremities: Yes: Other (Foot with 2 wound heel toe) Labs: CBC, BMP 08/06/16 06:30 Assessment/Plan Microbiology 08/04/16 01:36 Foot - Left Lateral Gram Stain - Final 08/04/16 01:36 Foot - Left Heel Gram Stain - Final 08/04/16 01:36 Foot - Left Lateral Wound Culture - Preliminary NO GROWTH OBTAINED AFTER 24 HOURS INCUBATION, REINCUBATED. 08/04/16 01:36 Foot - Left Heel Wound Culture - Preliminary Staphylococcus Coagulase Neg 08/03/16 20:15 Blood - Peripheral Venous Blood Culture - Preliminary NO GROWTH OBTAINED AFTER 48 HOURS, INCUBATION TO CONTINUE FOR 3 DAYS. 08/03/16 20:15 Blood - Peripheral Venous Blood Culture - Preliminary NO GROWTH OBTAINED AFTER 48 HOURS, INCUBATION TO CONTINUE FOR 3 DAYS. Laboratory Tests 08/05/16 08/05/16 08/06/16 06:00 14:47 06:30 WBC 7.1 Hgb 14.4 Plt Count 301 ESR 57 H BUN Creatinine Vancomycin Trough 25.817 H* 08/06/16 06:30 WBC Hgb Plt Count ESR BUN Pending Creatinine Pending Vancomycin Trough Assessment Going to need production checker therapy with PICC line 6 weeks Unsure treating Coag neg staph alone adequet for osteomyelitis Plan Hold Vanco for now as level high Recheck level before redose Stop Zosyn No Pseudomonas give Ceftriaxone Oral Metronidazole 500mg tid Kiko CEE
[2016-08-06 08:17] LABS: INR 1.19 (0.82-1.09); PROTHROMBIN TIME (PATIENT) 13.1 SEC (9.98-11.88)
[2016-08-06 08:18] LABS: ALBUMIN 3.2 g/dl (3.4-5.0); BILIRUBIN,DIRECT 0.2 mg/dL (0.0-0.2); BILIRUBIN,TOTAL 0.6 mg/dL (0.2-1.0); CALCIUM 9.1 mg/dL (8.5-10.1); COCKROFT - GAULT 218.44; CREATININE 0.8 mg/dL (0.7-1.3); MAGNESIUM 2.1 mg/dL (1.8-2.4); TOT PROT 6.9 g/dl (6.4-8.2)
[2016-08-06] MEDS: CARVEDILOL 6.25 MG TABLET (FP) PO SCH ×2 (09:26→21:32)
[2016-08-06] MEDS: ASPIRIN COATED 81 MG TABLET.EC PO SCH (09:26)
[2016-08-06] MEDS: LISINOPRIL 5 MG TABLET (FP) PO SCH (09:26)
[2016-08-06] MEDS: CEFTRIAXONE 100 ML IVPB SCH (09:26)
[2016-08-06] MEDS: COLLAGENASE CLOSTRIDIUM HIST. 30 GRAMS TUBE TP SCH (09:28)
--- NOTE | 2016-08-06 13:55 | CON.CARD ---
Consult Consult Specialty:: Cardiology Referred by:: Kang Reason for Consultation:: preop evaluation, CAD - History of Present Illness Chief Complaint: leg ulcer History of Present Illness: 66M history of HTN, obesity, peripheral neuropathy, HLD, CAD s/p stent many years ago, CABG [address] [facility] does not see any doctors, PVD s/p stent rt leg in the past, borderline DM (on no meds) who presents to the ED from wound clinic after recent admission to [facility] for a foot ulcer now awaiting angio and possible stent to left leg. No chest pain, orthopnea, pnd or edema. Exercise tolerance is poor due to neuropathy. Echo 08/05/16 tds nlef, mac trace mr mild tr/ai - History Source History Provided By: Patient, Medical Record Limitations to Obtaining History: No Limitations - Alcohol/Substance Use Hx Alcohol Use: No - Smoking History Smoking history: Current every day smoker Have you smoked in the past 12 months: Yes Aproximately how many cigarettes per day: 20 If you are a former smoker, when did you quit?: 1 week ago 10/2011 Home Medications - Allergies Allergies/Adverse Reactions: Allergies Allergy/AdvReac Type Severity Reaction Status Date / Time No Known Allergies Allergy Verified 08/03/16 17:38 - Home Medications Home Medications: Ambulatory Orders Amox-Tr/K Cl [Augmentin - 875Mg Tablet] 1 tab PO BID 08/04/16 Carvedilol [Coreg -] 6.25 mg PO Q12H 08/04/16 Lisinopril 5 mg PO DAILY 08/04/16 Simvastatin 40 mg PO DAILY 08/04/16 Vital Signs: Vital Signs Temperature 98.2 F 08/06/16 10:00 Pulse Rate 67 08/06/16 10:00 Respiratory Rate 18 08/06/16 10:00 Blood Pressure 133/68 08/06/16 10:00 O2 Sat by Pulse Oximetry (%) 95 08/06/16 09:00 Constitutional: Yes: No Distress, Calm Eyes: Yes: Conjunctiva Clear, EOM Intact HENT: Yes: Atraumatic, Normocephalic Neck: Yes: Supple, Trachea Midline Respiratory: Yes: CTA Bilaterally Gastrointestinal: Yes: Normal Bowel Sounds, Soft, Abdomen, Obese JVD: No Carotid Bruit: No PMI: Non-Displaced Heart Sounds: Yes: S1, S2 Edema: Yes Peripheral Pulses WNL: No Peripheral Pulses: 0 Left Doralis Pedis, 0 Right Dorsalis Pedis - Other Data Labs, Other Data: CBC, BMP 08/06/16 06:30 08/06/16 06:30 INR, PTT INR 1.19 (0.82-1.09) H 08/06/16 06:30 Troponin, BNP 08/05/16 07:10 B-Natriuretic Peptide 225.56 H Troponin, BNP 08/05/16 07:10 B-Natriuretic Peptide 225.56 H Echo: Report Reviewed (nlef tds) Prior Cardiac Procedures: CABG, Cardiac Catheterization, PTCA Ejection Fraction %: LVEF > or = 40 % Imaging - Results Chest X-ray: Report Reviewed (naheed) EKG: Report Reviewed (nsr old iwmi) Problem List - Problems (1) Preop cardiovascular exam Assessment/Plan: Known CAD no angina or CHF awaiting angio and poss angioplasty. There are no cardiac contraindications to the procedure. He is at low risk of perioperative cardiac events. Will see postop as needed. Needs outpatient cardiac, vascular and primary care follow up. Smoking cessation strongly encouraged. Code(s): Z01.810 - ENCOUNTER FOR PREPROCEDURAL CARDIOVASCULAR EXAMINATION
[2016-08-06] MEDS: metroNIDAZOLE 250 MG TABLET PO SCH ×2 (14:07→21:32)
[2016-08-06] MEDS ORDERED: PT OWN MED DRAWER 7, Y5N ONE (14:11)
--- NOTE | 2016-08-06 16:26 | PN ---
Physical Exam: SUBJECTIVE: Patient seen and examined at bedside. Voices no complaints. OBJECTIVE: Vital Signs Period Temp Pulse Resp BP Sys/Gomes Pulse Ox Last 24 Hr 97.3 F-98.5 F 55-67 18-20 115-145/56-75 95-95 GENERAL: The patient is awake, alert, and fully oriented, in no acute distress. HEAD: Normal with no signs of trauma. EYES: PERRL, extraocular movements intact, sclera anicteric, conjunctiva clear. No ptosis. LUNGS: Breath sounds equal, clear to auscultation bilaterally, no wheezes, no crackles, no accessory muscle use. HEART: Regular rate and rhythm, S1, S2 without murmur, rub or gallop. ABDOMEN: Obese. Soft, nontender, nondistended, normoactive bowel sounds, no guarding, no rebound EXTREMITIES: LLE swelling, both legs pale, cool; left foot has two ulcers: #1 heel: ~5cm in circumference, pink, granulating tissue in wound bed, no exudate, wound edge thickly calloused; #2 fifth digit: 1.5cmL x 1.5cm W unstageable, necrotic tissue NEUROLOGICAL: Cranial nerves II through XII grossly intact. Normal speech, gait not observed. Laboratory Results - last 24 hr 08/04/16 08/05/16 08/05/16 06:20 07:10 14:47 WBC RBC Hgb Hct MCV MCHC RDW Plt Count MPV Neutrophils % Lymphocytes % Monocytes % Eosinophils % Basophils % INR Sodium 135 L Potassium 4.7 Chloride 97 L Carbon Dioxide 29 Anion Gap 9 BUN 15 D Creatinine 0.8 Creat Clearance w eGFR > 60 POC Glucometer Random Glucose 104 Calcium 9.1 Phosphorus Magnesium Total Bilirubin 0.5 Direct Bilirubin AST 11 L ALT 23 Alkaline Phosphatase 66 LD Total C-Reactive Protein 2.4 H 2.3 H D Total Protein 7.2 Albumin 3.5 Vancomycin Trough 25.817 H* 08/05/16 08/05/16 08/06/16 16:33 21:14 06:26 WBC RBC Hgb Hct MCV MCHC RDW Plt Count MPV Neutrophils % Lymphocytes % Monocytes % Eosinophils % Basophils % INR Sodium Potassium Chloride Carbon Dioxide Anion Gap BUN Creatinine Creat Clearance w eGFR POC Glucometer 114 117 104 Random Glucose Calcium Phosphorus Magnesium Total Bilirubin Direct Bilirubin AST ALT Alkaline Phosphatase LD Total C-Reactive Protein Total Protein Albumin Vancomycin Trough 08/06/16 08/06/16 08/06/16 06:30 06:30 06:30 WBC 7.1 RBC 5.20 Hgb 14.4 Hct 43.6 MCV 83.8 MCHC 33.0 RDW 14.7 Plt Count 301 MPV 7.3 L Neutrophils % 62.8 Lymphocytes % 20.4 Monocytes % 8.3 Eosinophils % 7.7 H Basophils % 0.8 INR 1.19 H Sodium 135 L Potassium 4.4 Chloride 97 L Carbon Dioxide 31 Anion Gap 7 L BUN 12 Creatinine 0.8 Creat Clearance w eGFR POC Glucometer Random Glucose 109 H Calcium 9.1 Phosphorus 4.0 Magnesium 2.1 Total Bilirubin 0.6 Direct Bilirubin 0.2 AST 12 L ALT 20 Alkaline Phosphatase 64 LD Total 159 C-Reactive Protein Total Protein 6.9 Albumin 3.2 L Vancomycin Trough Active Medications Generic Name Dose Route Start Last Admin Trade Name Freq PRN Reason Stop Dose Admin Aspirin 81 mg 08/04/16 10:00 08/06/16 09:26 Ecotrin - PO 81 mg DAILY DIXIE Administration Atorvastatin Calcium 40 mg 08/05/16 22:00 08/05/16 21:25 Lipitor - PO 40 mg HS DIXIE Administration Carvedilol 6.25 mg 08/04/16 10:00 08/06/16 09:26 Coreg - PO 6.25 mg BID DIXIE Administration Collagenase 1 applic 08/04/16 10:00 08/06/16 09:28 Santyl - TP 1 applic DAILY DIXIE Administration Heparin Sodium (Porcine) 5,000 unit 08/04/16 06:00 08/06/16 14:07 Heparin - SQ 5,000 unit TID DIXIE Administration Ceftriaxone Sodium 100 mls @ 200 mls/hr 08/06/16 10:00 08/06/16 09:26 Rocephin 2gm Ivpb (Pre-Docked) IVPB 200 mls/hr DAILY DIXIE Administration Insulin Aspart 1 vial 08/04/16 07:00 08/06/16 16:20 Novolog Vial Sliding Scale - SQ Not Given ACHS [facility] Protocol Lisinopril 5 mg 08/04/16 10:00 08/06/16 09:26 Prinivil PO 5 mg DAILY DIXIE Administration Metronidazole 500 mg 08/06/16 14:00 08/06/16 14:07 Flagyl - PO 500 mg TID DIXIE Administration Microbiology 08/04/16 01:36 Foot - Left Heel Gram Stain - Final 08/04/16 01:36 Foot - Left Heel Wound Culture - Preliminary Staphylococcus Coagulase Neg Lactose Fermenting Neg Bacilli 08/04/16 01:36 Foot - Left Lateral Gram Stain - Final 08/04/16 01:36 Foot - Left Lateral Wound Culture - Final NO GROWTH AFTER 48 HOURS INCUBATION 08/03/16 20:15 Blood - Peripheral Venous Blood Culture - Preliminary NO GROWTH OBTAINED AFTER 48 HOURS, INCUBATION TO CONTINUE FOR 3 DAYS. 08/03/16 20:15 Blood - Peripheral Venous Blood Culture - Preliminary NO GROWTH OBTAINED AFTER 48 HOURS, INCUBATION TO CONTINUE FOR 3 DAYS. ASSESSMENT/PLAN 66 year-old male with a PMH of HTN, HLD, CAD s/p multiple stents and CABG x 2 ( 2011), systolic and diastolic heart failure, NIDDM, and chronic arterial ulcers of left foot. Long history of non-compliance. Last saw a PCP 25 years ago. Had one followup visit following his 2011 CABG. Current every day smoker. Chronic arterial ulcers of left foot --admitted to [facility] 07/25-->07/30/16; left heel ulcer debrided; discussed with Dr. Davies, vascular at [facility], xray imaging of left foot did not suggest osteo; did not have an MRI during this most recent visit; had MRI of left foot in 2016 that was negative for osteo --will need further imaging to r/o osteo; problem is h/o multiple cardiac stents; poor historian, not sure how many stents, when, or where placed --ordered triple phase bone scan --wound culture +coag neg staph and LFGNB --per ID, hold Vanc, stop Zosyn; start ceftriaxone (day #1) and PO flagyl ( day #1) Bilateral lower extremity atherosclerotic disease and stenosis --CTA of abdomen and pelvis with b/l lower extremity runoffs: (1) 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 MRI on nonemergent basis --seen and evaluated by vascular, will need angiogram --cardiology has seen and evaluated patient, no cardiac contraindications for procedure --continue ASA, statin Inguinal and iliac chain bulky adenopathy --CTA shows extensive b/l inguinal and iliac chain bulky adenopathy up to 5.4cm on left and 3.0cm on right, inflammatory/infections v. neopolastic --tissue biopsy ordered, patient advised and agrees to procedure Left lower extremity swelling --US negative for DVT Hypertension --BP well-controlled --continue carvedilol, lisinopril Hyperlipidemia --continue statin CAD --continue carvedilol, ASA, statin Chronic diastolic heart failure --see Dr. Lopez's consult note 10/18/11 --BNP >1,700 --bilateral lower extremity edema --08/05 echo: LV function grossly normal, RWMA cannot be excluded, EF 53%; RV not well-visualized; LA mildly dilated; trace MR; mild TR; mild AI; trivial pericardial effusion --no presently on diuretics --CXR pending F/E/N Fluids: PO intake adequate Electrolytes: replete as indicated Nutrition: diabetic, low sodium DVT prophylaxis: subq heparin PT evaluation Daily PT Dispo: continues to require inpatient care. Full Code. Visit type - Emergency Visit Emergency Visit: Yes ED Registration Date: 08/04/16 Care time: The patient presented to the Emergency Department on the above date and was hospitalized for further evaluation of their emergent condition. - New Patient This patient is new to me today: No - Critical Care Critical Care patient: No
[2016-08-06] MEDS: ATORVASTATIN CA 40 MG TABLET (FP) PO SCH (21:32)
[2016-08-07] MEDS: INSULIN SLIDING SCALE (NOVOLOG) 1 VIAL SQ SCH ×4 (06:19→21:53)
[2016-08-07] MEDS: metroNIDAZOLE 250 MG TABLET PO SCH ×3 (06:21→21:36)
[2016-08-07] MEDS: HEPARIN NA (PORCINE) 5,000 UNITS/ML 1ML VIAL SQ SCH ×3 (06:21→21:37)
--- NOTE | 2016-08-07 08:12 | PN ---
Progress Note, Physician Chief Complaint: ID Vancomycin Ceftriaxone metronidazole Surgical note Dr Evans : "exposed bone" I would assume osteo - Current Medication List Current Medications: Active Medications Aspirin (Ecotrin -) 81 mg PO DAILY [facility] Last Admin: 08/06/16 09:26 Dose: 81 mg Atorvastatin Calcium (Lipitor -) 40 mg PO HS [facility] Last Admin: 08/06/16 21:32 Dose: 40 mg Carvedilol (Coreg -) 6.25 mg PO BID [facility] Last Admin: 08/06/16 21:32 Dose: 6.25 mg Collagenase (Santyl -) 1 applic TP DAILY [facility] Last Admin: 08/06/16 09:28 Dose: 1 applic Heparin Sodium (Porcine) (Heparin -) 5,000 unit SQ TID [facility] Last Admin: 08/07/16 06:21 Dose: 5,000 unit Ceftriaxone Sodium (Rocephin 2gm Ivpb (Pre-Docked)) 100 mls @ 200 mls/hr IVPB DAILY [facility] Last Admin: 08/06/16 09:26 Dose: 200 mls/hr Insulin Aspart (Novolog Vial Sliding Scale -) 1 vial SQ ACHS [facility] PRN Reason: Protocol Last Admin: 08/07/16 06:19 Dose: Not Given Lisinopril (Prinivil) 5 mg PO DAILY [facility] Last Admin: 08/06/16 09:26 Dose: 5 mg Metronidazole (Flagyl -) 500 mg PO TID [facility] Last Admin: 08/07/16 06:21 Dose: 500 mg - Objective Vital Signs: Vital Signs Temperature 97.5 F L 08/07/16 06:00 Pulse Rate 55 L 08/07/16 06:00 Respiratory Rate 20 08/07/16 06:00 Blood Pressure 123/59 08/07/16 06:00 O2 Sat by Pulse Oximetry (%) 94 L 08/06/16 20:46 Constitutional: Yes: Well Nourished, No Distress, Obese Neck: Yes: WNL, Supple Cardiovascular: Yes: S1, S2 Respiratory: Yes: WNL, Regular, CTA Bilaterally Gastrointestinal: Yes: WNL, Normal Bowel Sounds, Soft. No: Tenderness Extremities: Yes: Other (Foot wounds as described) Labs: CBC, BMP 08/06/16 06:30 08/06/16 06:30 INR, PTT INR 1.19 (0.82-1.09) H 08/06/16 06:30 Assessment/Plan Laboratory Tests 08/05/16 08/05/16 08/06/16 06:00 07:10 06:30 WBC 7.1 Hgb 14.4 Plt Count 301 ESR 57 H C-Reactive Protein 2.3 H D Microbiology 08/04/16 01:36 Foot - Left Lateral Gram Stain - Final 08/04/16 01:36 Foot - Left Lateral Wound Culture - Final NO GROWTH AFTER 48 HOURS INCUBATION 08/04/16 01:36 Foot - Left Heel Gram Stain - Final 08/04/16 01:36 Foot - Left Heel Wound Culture - Preliminary Staphylococcus Coagulase Neg Lactose Fermenting Neg Bacilli 08/03/16 20:15 Blood - Peripheral Venous Blood Culture - Preliminary NO GROWTH OBTAINED AFTER 72 HOURS, INCUBATION TO CONTINUE FOR 2 DAYS. Assessment Diabetic wounds Obesity Osteo suspected Cultures noted Plan Resume Vancomycin pending today Vanco level Bone scan ordered I would suspect going to "light up" Kiko CEE
[2016-08-07] MEDS ORDERED: PT OWN MED DRAWER 7, Y5N ONE (09:59)
[2016-08-07] MEDS: CARVEDILOL 6.25 MG TABLET (FP) PO SCH ×2 (10:04→21:37)
[2016-08-07] MEDS: CEFTRIAXONE 100 ML IVPB SCH (10:04)
[2016-08-07] MEDS: ASPIRIN COATED 81 MG TABLET.EC PO SCH (10:04)
[2016-08-07] MEDS: COLLAGENASE CLOSTRIDIUM HIST. 30 GRAMS TUBE TP SCH (10:04)
[2016-08-07] MEDS: LISINOPRIL 5 MG TABLET (FP) PO SCH (10:04)
[2016-08-07] MEDS ORDERED: VANCOMYCIN 1,500 MG in DEXTROSE 5%-WATER - 500 ML IVPB SCH (19:00)
--- NOTE | 2016-08-07 19:13 | PN ---
Physical Exam: SUBJECTIVE: Patient seen and examined at bedside. OBJECTIVE: Vital Signs Period Temp Pulse Resp BP Sys/Gomes Pulse Ox Last 24 Hr 97.5 F-98.1 F 55-66 18-20 103-123/58-64 94-94 GENERAL: The patient is awake, alert, and fully oriented, in no acute distress. HEAD: Normal with no signs of trauma. EYES: PERRL, extraocular movements intact, sclera anicteric, conjunctiva clear. No ptosis. LUNGS: Breath sounds equal, clear to auscultation bilaterally, no wheezes, no crackles, no accessory muscle use. HEART: Regular rate and rhythm, S1, S2 without murmur, rub or gallop. ABDOMEN: Obese. Soft, nontender, nondistended, normoactive bowel sounds, no guarding, no rebound EXTREMITIES: LLE swelling, both legs pale, cool; left foot has two ulcers: #1 heel: ~5cm in circumference, pink, granulating tissue in wound bed, no exudate, wound edge thickly calloused; #2 fifth digit: 1.5cmL x 1.5cm W unstageable, necrotic tissue NEUROLOGICAL: Cranial nerves II through XII grossly intact. Normal speech, gait not observed. CBCD WBC 7.1 K/mm3 (4.0-10.0) 08/06/16 06:30 RBC 5.20 M/mm3 (4.00-5.60) 08/06/16 06:30 Hgb 14.4 GM/dL (11.7-16.9) 08/06/16 06:30 Hct 43.6 % (35.4-49) 08/06/16 06:30 MCV 83.8 fl (80-96) 08/06/16 06:30 MCHC 33.0 g/dl (32.0-35.9) 08/06/16 06:30 RDW 14.7 % (11.9-15.9) 08/06/16 06:30 Plt Count 301 K/MM3 (134-434) 08/06/16 06:30 MPV 7.3 fl (7.5-11.1) L 08/06/16 06:30 CMP Sodium 135 mmol/L (136-145) L 08/06/16 06:30 Potassium 4.4 mmol/L (3.5-5.1) 08/06/16 06:30 Chloride 97 mmol/L (98-107) L 08/06/16 06:30 Carbon Dioxide 31 mmol/L (21-32) 08/06/16 06:30 Anion Gap 7 (8-16) L 08/06/16 06:30 BUN 12 mg/dL (7-18) 08/06/16 06:30 Creatinine 0.8 mg/dL (0.7-1.3) 08/06/16 06:30 Creat Clearance w eGFR > 60 (>60) 08/05/16 07:10 Calcium 9.1 mg/dL (8.5-10.1) 08/06/16 06:30 Total Bilirubin 0.6 mg/dL (0.2-1.0) 08/06/16 06:30 AST 12 U/L (15-37) L 08/06/16 06:30 ALT 20 U/L (12-78) 08/06/16 06:30 Alkaline Phosphatase 64 U/L (45-117) 08/06/16 06:30 Total Protein 6.9 g/dl (6.4-8.2) 08/06/16 06:30 Albumin 3.2 g/dl (3.4-5.0) L 08/06/16 06:30 Active Medications Generic Name Dose Route Start Last Admin Trade Name Guy PRN Reason Stop Dose Admin Aspirin 81 mg 08/04/16 10:00 08/07/16 10:04 Ecotrin - PO 81 mg DAILY DIXIE Administration Atorvastatin Calcium 40 mg 08/05/16 22:00 08/06/16 21:32 Lipitor - PO 40 mg HS DIXIE Administration Carvedilol 6.25 mg 08/04/16 10:00 08/07/16 10:04 Coreg - PO 6.25 mg BID DIXIE Administration Collagenase 1 applic 08/04/16 10:00 08/07/16 10:04 Santyl - TP 1 applic DAILY DIXIE Administration Heparin Sodium (Porcine) 5,000 unit 08/04/16 06:00 08/07/16 13:58 Heparin - SQ 5,000 unit TID DIXIE Administration Ceftriaxone Sodium 100 mls @ 200 mls/hr 08/06/16 10:00 08/07/16 10:04 Rocephin 2gm Ivpb (Pre-Docked) IVPB 200 mls/hr DAILY DIXIE Administration Insulin Aspart 1 vial 08/04/16 07:00 08/07/16 17:08 Novolog Vial Sliding Scale - SQ Not Given ACHS [facility] Protocol Lisinopril 5 mg 08/04/16 10:00 08/07/16 10:04 Prinivil PO 5 mg DAILY DIXIE Administration Metronidazole 500 mg 08/06/16 14:00 08/07/16 13:58 Flagyl - PO 500 mg TID DIXIE Administration Microbiology 08/04/16 01:36 Foot - Left Heel Gram Stain - Final 08/04/16 01:36 Foot - Left Heel Wound Culture - Final Staphylococcus Coagulase Neg Enterobacter Cloacae 08/03/16 20:15 Blood - Peripheral Venous Blood Culture - Preliminary NO GROWTH OBTAINED AFTER 72 HOURS, INCUBATION TO CONTINUE FOR 2 DAYS. 08/03/16 20:15 Blood - Peripheral Venous Blood Culture - Preliminary NO GROWTH OBTAINED AFTER 72 HOURS, INCUBATION TO CONTINUE FOR 2 DAYS. 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 MRI on nonemergent basis (6) extensive b/l inguinal and iliac chain bulky adenopathy up to 5.4cm on left and 3.0cm on right, inflammatory/infections v. neopolastic ASSESSMENT/PLAN 66 year-old male with a PMH of HTN, HLD, CAD s/p multiple stents and CABG x 2 ( 2011), systolic and diastolic heart failure, NIDDM, and chronic arterial ulcers of left foot. Long history of non-compliance. Last saw a PCP 25 years ago. Had one followup visit following his 2011 CABG. Current every day smoker. Chronic arterial ulcers of left foot --admitted to [facility] 07/25-->07/30/16; left heel ulcer debrided; discussed with Dr. Davies, vascular at [facility], xray imaging of left foot did not suggest osteo; did not have an MRI during this most recent visit; had MRI of left foot in 2016 that was negative for osteo --will need further imaging to r/o osteo; problem is h/o multiple cardiac stents; poor historian, not sure how many stents, when, or where placed --ordered triple phase bone scan --wound culture +coag neg staph and enterobacter with intermediate resistance to ceftriaxone --Vanc level low --dose Vanco now, start Zosyn pending ID approval Bilateral lower extremity atherosclerotic disease and stenosis --seen and evaluated by vascular, will need angiogram --per cardiology, no cardiac contraindications for procedure --continue ASA, statin Inguinal and iliac chain bulky adenopathy --CTA shows --tissue biopsy ordered, patient advised and agrees to procedure Left lower extremity swelling --US negative for DVT Hypertension --BP well-controlled --continue carvedilol, lisinopril Hyperlipidemia --continue statin CAD --continue carvedilol, ASA, statin Chronic diastolic heart failure --see Dr. Lopez's consult note 10/18/11 --BNP >1,700 --bilateral lower extremity edema --08/05 echo: LV function grossly normal, RWMA cannot be excluded, EF 53%; RV not well-visualized; LA mildly dilated; trace MR; mild TR; mild AI; trivial pericardial effusion --not presently on diuretics --CXR pending F/E/N Fluids: PO intake adequate Electrolytes: replete as indicated Nutrition: diabetic, low sodium DVT prophylaxis: subq heparin PT evaluation Daily PT Dispo: continues to require inpatient care. Full Code. Visit type - Emergency Visit Emergency Visit: Yes ED Registration Date: 08/04/16 Care time: The patient presented to the Emergency Department on the above date and was hospitalized for further evaluation of their emergent condition. - New Patient This patient is new to me today: No - Critical Care Critical Care patient: No
[2016-08-07] MEDS: PIPERACILLIN/TAZOB 3.375 GM/50 ML PRE-DOCKED IVPB SCH (19:59)
[2016-08-07] MEDS: ATORVASTATIN CA 40 MG TABLET (FP) PO SCH (21:37)
--- NOTE | 2016-08-07 22:34 | EKG ---
Test Reason : Blood Pressure : / mmHG Vent. Rate : 061 BPM Atrial Rate : 061 BPM P-R Int : 276 ms QRS Dur : 112 ms QT Int : 418 ms P-R-T Axes : 050 -19 056 degrees QTc Int : 420 ms SINUS RHYTHM WITH 1ST DEGREE A-V BLOCK INFERIOR INFARCT (CITED ON OR BEFORE 04-AUG-2016) ABNORMAL ECG WHEN COMPARED WITH ECG OF 04-AUG-2016 01:02, NO SIGNIFICANT CHANGE IS FOUND Confirmed by JOCELYNN FLANAGAN MD ([id number]) on 08/07/2016 10:34:34 PM Referred By: DEE RESENDIZ Confirmed By:JOCELYNN FLANAGAN MD
[2016-08-08] MEDS: PIPERACILLIN/TAZOB 3.375 GM/50 ML PRE-DOCKED IVPB SCH ×2 (01:25→10:26)
[2016-08-08] MEDS: INSULIN SLIDING SCALE (NOVOLOG) 1 VIAL SQ SCH ×4 (06:17→22:10)
[2016-08-08] MEDS: HEPARIN NA (PORCINE) 5,000 UNITS/ML 1ML VIAL SQ SCH ×3 (06:19→22:09)
[2016-08-08] MEDS: metroNIDAZOLE 250 MG TABLET PO SCH (06:19)
[2016-08-08 07:14] LABS: EOSINOPHIL 6.1 % (0-4.5); MCH 27.5 pg (25.7-33.7); MCHC 32.8 g/dl (32.0-35.9); MEAN CELL VOLUME 83.9 fl (80-96); MEAN PLT VOLUME 7.4 fl (7.5-11.1); NEUTROPHILS 65.9 % (42.8-82.8); PLATELET COUNT 308 K/MM3 (134-434); RDW 15.1 % (11.9-15.9); WHITE BLOOD COUNT 7.6 K/mm3 (4.0-10.0)
[2016-08-08 07:25] LABS: ALBUMIN 3.3 g/dl (3.4-5.0); ANION GAP 11 (8-16); CALCIUM 9.2 mg/dL (8.5-10.1); CO2 29 mmol/L (21-32); GLUCOSE,RANDOM 111 mg/dL (74-106)
[2016-08-08 07:29] LABS: ALK PHOS 65 U/L (45-117); BILIRUBIN,TOTAL 0.7 mg/dL (0.2-1.0); COCKROFT - GAULT 218.44; CREATININE 0.8 mg/dL (0.7-1.3); SGOT/AST 15 U/L (15-37); SGPT/ALT 24 U/L (12-78); TOT PROT 7.1 g/dl (6.4-8.2)
[2016-08-08] MEDS: VANCOMYCIN 1,500 MG in DEXTROSE 5%-WATER - 500 ML IVPB SCH ×2 (08:37→20:34)
[2016-08-08] MEDS ORDERED: PT OWN MED DRAWER 7, Y5N ONE (10:23)
[2016-08-08] MEDS: CARVEDILOL 6.25 MG TABLET (FP) PO SCH ×2 (10:25→22:09)
[2016-08-08] MEDS: ASPIRIN COATED 81 MG TABLET.EC PO SCH (10:25)
[2016-08-08] MEDS: LISINOPRIL 5 MG TABLET (FP) PO SCH (10:25)
[2016-08-08] MEDS: CEFTRIAXONE 100 ML IVPB SCH (10:25)
--- NOTE | 2016-08-08 11:47 | PN ---
Progress Note (short form) - Note Progress Note: Vascular Surgery Pt seen and examined. CTA reviewed. extensive infra-popliteal disease. Pt with heel and left 5th toe ulcer Will do angiogram tom. Alonso by cardio NPO past midnight Bienvenido Gomez DO
--- NOTE | 2016-08-08 12:52 | PN ---
Progress Note, Physician History of Present Illness: No c/o L foot pain Denies fever/ chills Wound c/s noted - Current Medication List Current Medications: Active Medications Aspirin (Ecotrin -) 81 mg PO DAILY [facility] Last Admin: 08/08/16 10:25 Dose: 81 mg Atorvastatin Calcium (Lipitor -) 40 mg PO HS [facility] Last Admin: 08/07/16 21:37 Dose: 40 mg Carvedilol (Coreg -) 6.25 mg PO BID [facility] Last Admin: 08/08/16 10:25 Dose: 6.25 mg Collagenase (Santyl -) 1 applic TP DAILY [facility] Last Admin: 08/07/16 10:04 Dose: 1 applic Heparin Sodium (Porcine) (Heparin -) 5,000 unit SQ TID [facility] Last Admin: 08/08/16 06:19 Dose: 5,000 unit Vancomycin HCl 1,500 mg/ (Dextrose) 500 mls @ 250 mls/hr IVPB Q12H [facility] PRN Reason: Protocol Last Admin: 08/08/16 08:37 Dose: 250 mls/hr Piperacillin Sod/Tazobactam Sod (Zosyn 3.375gm Ivpb (Pre-Docked)) 50 mls @ 100 mls/hr IVPB Q8H-IV [facility] PRN Reason: Protocol Insulin Aspart (Novolog Vial Sliding Scale -) 1 vial SQ ACHS [facility] PRN Reason: Protocol Last Admin: 08/08/16 12:06 Dose: Not Given Lisinopril (Prinivil) 5 mg PO DAILY [facility] Last Admin: 08/08/16 10:25 Dose: 5 mg - Objective Vital Signs: Vital Signs Temperature 97.4 F L 08/08/16 06:00 Pulse Rate 58 L 08/08/16 06:00 Respiratory Rate 24 08/08/16 06:00 Blood Pressure 148/65 08/08/16 06:00 O2 Sat by Pulse Oximetry (%) 96 08/07/16 21:00 Constitutional: Yes: No Distress, Obese Eyes: Yes: Conjunctiva Clear Cardiovascular: Yes: Regular Rate and Rhythm, S1, S2 Respiratory: Yes: CTA Bilaterally Gastrointestinal: Yes: Normal Bowel Sounds, Soft, Abdomen, Obese. No: Tenderness Extremities: Yes: Other (+ Heel and 5th toe ulcers) Edema: Yes Labs: CBC, BMP 08/08/16 06:15 08/08/16 06:15 INR, PTT INR 1.19 (0.82-1.09) H 08/06/16 06:30 Assessment/Plan Infected diabetic foot ulcers Osteomyelitis Continue zosyn/ vancomycin Local wound care
[2016-08-08] MEDS ORDERED: FUROSEMIDE 40 MG/4 ML INJECTABLE VIAL IVPB STA (14:01)
--- NOTE | 2016-08-08 14:07 | PN ---
Physical Exam: SUBJECTIVE: Patient seen and examined OBJECTIVE: Vital Signs Period Temp Pulse Resp BP Sys/Gomes Pulse Ox Last 24 Hr 97.4 F-97.9 F 58-62 18-24 108-148/62-65 96 GENERAL: The patient is awake, alert, and fully oriented, in no acute distress. HEAD: Normal with no signs of trauma. EYES: PERRL, extraocular movements intact, sclera anicteric, conjunctiva clear. No ptosis. LUNGS: Breath sounds equal, clear to auscultation bilaterally, no wheezes, no crackles, no accessory muscle use. HEART: Regular rate and rhythm, S1, S2 without murmur, rub or gallop. ABDOMEN: Obese. Soft, nontender, nondistended, normoactive bowel sounds, no guarding, no rebound EXTREMITIES: LLE swelling, both legs pale, cool; left foot has two ulcers: #1 heel: ~5cm in circumference, pink, granulating tissue in wound bed, no exudate, wound edge thickly calloused; #2 fifth digit: 1.5cmL x 1.5cm W unstageable, necrotic tissue NEUROLOGICAL: Cranial nerves II through XII grossly intact. Normal speech, gait not observed. Laboratory Results - last 24 hr 08/07/16 08/07/16 08/08/16 17:07 21:41 06:15 WBC 7.6 RBC 5.44 Hgb 14.9 Hct 45.6 MCV 83.9 MCHC 32.8 RDW 15.1 Plt Count 308 MPV 7.4 L Neutrophils % 65.9 Lymphocytes % 18.6 Monocytes % 8.4 Eosinophils % 6.1 H Basophils % 1.0 Sodium Potassium Chloride Carbon Dioxide Anion Gap BUN Creatinine Creat Clearance w eGFR POC Glucometer 124 110 Random Glucose Calcium Magnesium Total Bilirubin AST ALT Alkaline Phosphatase Total Protein Albumin 08/08/16 08/08/16 06:15 12:05 WBC RBC Hgb Hct MCV MCHC RDW Plt Count MPV Neutrophils % Lymphocytes % Monocytes % Eosinophils % Basophils % Sodium 136 Potassium 4.5 Chloride 96 L Carbon Dioxide 29 Anion Gap 11 BUN 14 Creatinine 0.8 Creat Clearance w eGFR > 60 POC Glucometer 122 Random Glucose 111 H Calcium 9.2 Magnesium 2.0 Total Bilirubin 0.7 AST 15 D ALT 24 Alkaline Phosphatase 65 Total Protein 7.1 Albumin 3.3 L Active Medications Generic Name Dose Route Start Last Admin Trade Name Guy PRN Reason Stop Dose Admin Aspirin 81 mg 08/04/16 10:00 08/08/16 10:25 Ecotrin - PO 81 mg DAILY [facility] Administration Atorvastatin Calcium 40 mg 08/05/16 22:00 08/07/16 21:37 Lipitor - PO 40 mg HS DIXIE Administration Carvedilol 6.25 mg 08/04/16 10:00 08/08/16 10:25 Coreg - PO 6.25 mg BID DIXIE Administration Collagenase 1 applic 08/04/16 10:00 08/07/16 10:04 Santyl - TP 1 applic DAILY [facility] Administration Heparin Sodium (Porcine) 5,000 unit 08/04/16 06:00 08/08/16 06:19 Heparin - SQ 5,000 unit TID [facility] Administration Vancomycin HCl 1,500 mg/ 500 mls @ 250 mls/hr 08/08/16 09:30 08/08/16 08:37 Dextrose IVPB 250 mls/hr Q12H DIXIE Administration Protocol Piperacillin Sod/Tazobactam Sod 50 mls @ 100 mls/hr 08/08/16 18:00 Zosyn 3.375gm Ivpb (Pre-Docked) IVPB Q8H-IV [facility] Protocol Insulin Aspart 1 vial 08/04/16 07:00 08/08/16 12:06 Novolog Vial Sliding Scale - SQ Not Given ACHS [facility] Protocol Lisinopril 5 mg 08/04/16 10:00 08/08/16 10:25 Prinivil PO 5 mg DAILY DIXIE Administration Microbiology 08/04/16 01:36 Foot - Left Heel Gram Stain - Final 08/04/16 01:36 Foot - Left Heel Wound Culture - Final Staphylococcus Coagulase Neg Enterobacter Cloacae 08/03/16 20:15 Blood - Peripheral Venous Blood Culture - Preliminary NO GROWTH OBTAINED AFTER 72 HOURS, INCUBATION TO CONTINUE FOR 2 DAYS. 08/03/16 20:15 Blood - Peripheral Venous Blood Culture - Preliminary NO GROWTH OBTAINED AFTER 72 HOURS, INCUBATION TO CONTINUE FOR 2 DAYS. 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 MRI on nonemergent basis (6) extensive b/l inguinal and iliac chain bulky adenopathy up to 5.4cm on left and 3.0cm on right, inflammatory/infections v. neopolastic ASSESSMENT/PLAN 66 year-old male with a PMH of HTN, HLD, CAD s/p multiple stents and CABG x 2 ( 2011), systolic and diastolic heart failure, NIDDM, and chronic arterial ulcers of left foot. Long history of non-compliance. Last saw a PCP 25 years ago. Had one followup visit following his 2011 CABG. Current every day smoker. Chronic arterial ulcers of left foot --admitted to [facility] 07/25-->07/30/16; left heel ulcer debrided; discussed with Dr. Davies, vascular at [facility], xray imaging of left foot did not suggest osteo; did not have an MRI during this most recent visit; had MRI of left foot in 2016 that was negative for osteo --will need further imaging to r/o osteo; problem is h/o multiple cardiac stents; poor historian, not sure how many stents, when, or where placed --ordered triple phase bone scan --wound culture +coag neg staph and enterobacter with intermediate resistance to ceftriaxone --Vanc level low --dose Vanco now, start Zosyn --ID following Bilateral lower extremity atherosclerotic disease and stenosis --angiogram tomorrow with Dr. Gomez --per cardiology, no cardiac contraindications for procedure --continue ASA, statin Inguinal and iliac chain bulky adenopathy --CTA shows --tissue biopsy ordered, patient advised and agrees to procedure Left lower extremity swelling --US negative for DVT Hypertension --BP well-controlled --continue carvedilol, lisinopril Hyperlipidemia --continue statin CAD --continue carvedilol, ASA, statin Chronic diastolic heart failure --see Dr. Lopez's consult note 10/18/11 --BNP >1,700 --bilateral lower extremity edema --08/05 echo: LV function grossly normal, RWMA cannot be excluded, EF 53%; RV not well-visualized; LA mildly dilated; trace MR; mild TR; mild AI; trivial pericardial effusion --not presently on diuretics --08/08 CXR: congestion left lung, possible infiltrate --start IV Lasix 40mg BID F/E/N Fluids: PO intake adequate Electrolytes: replete as indicated Nutrition: diabetic, low sodium DVT prophylaxis: subq heparin PT evaluation Daily PT Dispo: continues to require inpatient care. Full Code. Visit type - Emergency Visit Emergency Visit: Yes ED Registration Date: 08/04/16 Care time: The patient presented to the Emergency Department on the above date and was hospitalized for further evaluation of their emergent condition. - New Patient This patient is new to me today: No - Critical Care Critical Care patient: No
[2016-08-08] MEDS: PIPERACILLIN/TAZOB 3.375 GM 50 ML IVPB SCH (17:20)
[2016-08-08] MEDS ORDERED: FUROSEMIDE 40 MG/4 ML INJECTABLE VIAL IVPUSH ONE (20:00)
[2016-08-08] MEDS: ATORVASTATIN CA 40 MG TABLET (FP) PO SCH (22:09)
[2016-08-09] MEDS: PIPERACILLIN/TAZOB 3.375 GM 50 ML IVPB SCH ×3 (01:18→17:08)
[2016-08-09] MEDS ORDERED: FUROSEMIDE 100 MG/10 ML INJECTABLE VIAL IVPB SCH (06:00)
[2016-08-09] MEDS ORDERED: FUROSEMIDE 40 MG/4 ML INJECTABLE VIAL IVPB SCH (06:00)
[2016-08-09] MEDS: INSULIN SLIDING SCALE (NOVOLOG) 1 VIAL SQ SCH ×4 (06:19→21:51)
[2016-08-09] MEDS: HEPARIN NA (PORCINE) 5,000 UNITS/ML 1ML VIAL SQ SCH ×3 (06:19→21:50)
[2016-08-09 07:05] LABS: BASOPHIL 0.7 % (0-2.0); EOSINOPHIL 5.3 % (0-4.5); MCH 27.7 pg (25.7-33.7); MEAN PLT VOLUME 7.2 fl (7.5-11.1); NEUTROPHILS 69.4 % (42.8-82.8); PLATELET COUNT 315 K/MM3 (134-434); RDW 14.8 % (11.9-15.9); WHITE BLOOD COUNT 8.4 K/mm3 (4.0-10.0)
[2016-08-09 07:30] LABS: ALBUMIN 3.5 g/dl (3.4-5.0); ANION GAP 13 (8-16); CALCIUM 9.3 mg/dL (8.5-10.1); CO2 30 mmol/L (21-32); GLUCOSE,RANDOM 113 mg/dL (74-106)
[2016-08-09 07:33] LABS: ALK PHOS 64 U/L (45-117); BILIRUBIN,TOTAL 0.6 mg/dL (0.2-1.0); CREATININE 0.9 mg/dL (0.7-1.3); SGOT/AST 35 U/L (15-37); SGPT/ALT 40 U/L (12-78); TOT PROT 7.3 g/dl (6.4-8.2)
[2016-08-09] MEDS ORDERED: PT OWN MED DRAWER 7, Y5N ONE (08:56)
--- NOTE | 2016-08-09 10:39 | PN ---
Progress Note, Physician History of Present Illness: Awake, alert No c/o foot pain No fever/ chills For OR today - Current Medication List Current Medications: Active Medications Aspirin (Ecotrin -) 81 mg PO DAILY [facility] Last Admin: 08/08/16 10:25 Dose: 81 mg Atorvastatin Calcium (Lipitor -) 40 mg PO HS [facility] Last Admin: 08/08/16 22:09 Dose: 40 mg Carvedilol (Coreg -) 6.25 mg PO BID [facility] Last Admin: 08/08/16 22:09 Dose: 6.25 mg Collagenase (Santyl -) 1 applic TP DAILY [facility] Last Admin: 08/07/16 10:04 Dose: 1 applic Furosemide (Lasix Injection -) 40 mg IVPB BID@0600,1400 [facility] Last Admin: 08/09/16 06:19 Dose: 40 mg Heparin Sodium (Porcine) (Heparin -) 5,000 unit SQ TID [facility] Last Admin: 08/09/16 06:19 Dose: Not Given Vancomycin HCl 1,500 mg/ (Dextrose) 500 mls @ 250 mls/hr IVPB Q12H [facility] PRN Reason: Protocol Last Admin: 08/08/16 20:34 Dose: 250 mls/hr Piperacillin Sod/Tazobactam Sod (Zosyn 3.375gm Ivpb (Pre-Docked)) 50 mls @ 100 mls/hr IVPB Q8H-IV [facility] PRN Reason: Protocol Last Admin: 08/09/16 01:18 Dose: 100 mls/hr Insulin Aspart (Novolog Vial Sliding Scale -) 1 vial SQ ACHS [facility] PRN Reason: Protocol Last Admin: 08/09/16 06:19 Dose: Not Given Lisinopril (Prinivil) 5 mg PO DAILY [facility] Last Admin: 08/08/16 10:25 Dose: 5 mg - Objective Vital Signs: Vital Signs Temperature 97.7 F 08/09/16 05:52 Pulse Rate 62 08/09/16 05:52 Respiratory Rate 19 08/09/16 05:52 Blood Pressure 136/78 08/09/16 05:52 O2 Sat by Pulse Oximetry (%) 97 08/08/16 21:00 Constitutional: Yes: No Distress, Obese Eyes: Yes: Conjunctiva Clear Cardiovascular: Yes: Regular Rate and Rhythm, S1, S2 Respiratory: Yes: CTA Bilaterally Gastrointestinal: Yes: Normal Bowel Sounds, Soft. No: Tenderness Extremities: Yes: Other (+ L heel ulcer, L 5th toe ulcer no drainage) Labs: CBC, BMP 08/09/16 06:20 08/09/16 06:20 INR, PTT INR 1.19 (0.82-1.09) H 08/06/16 06:30 Assessment/Plan Infected diabetic foot ulcers Osteomyelitis Continue zosyn/ vancomycin Local wound care For angiogram today
[2016-08-09] MEDS ORDERED: MIDAZOLAM HCL 2 MG/2 ML SINGLE DOSE VIAL ONE ×2 (11:01→11:40)
[2016-08-09] MEDS ORDERED: ceFAZolin SODIUM 1 GM VIAL ONE (11:17)
[2016-08-09] MEDS ORDERED: ceFAZolin SODIUM 1 GM VIAL IVPB ONE ×2 (11:20)
[2016-08-09] MEDS ORDERED: HEPARIN NA (PORCINE) 5,000 UNITS/ML 1ML VIAL ONE (11:24)
[2016-08-09] MEDS ORDERED: LIDOCAINE HCL 1%, 10 MG/ML (50 mL VIAL) IJ ONE ×3 (11:28)
--- NOTE | 2016-08-09 12:06 | PN ---
Progress Note (short form) - Note Progress Note: Vascular Surgery S/P angiogram. Pt has PT as primary runoff into heel. No disease to perform angioplasty. Local wound care. Will benefit from HBO as outpt. Question of whether pt has osteo and needs to be treated. Bienvenido Gomez DO
[2016-08-09] MEDS ORDERED: ONDANSETRON 4 MG/2 ML VIAL IVPUSH PRN ×2 (12:10→12:24)
[2016-08-09] MEDS ORDERED: LACTATED RINGERS SOLUTION 1,000 ML IV SCH (12:15)
--- NOTE | 2016-08-09 12:16 | OP ---
Operative Note - Note: Operative Date: 08/09/16 Pre-Operative Diagnosis: Left heel diabetic foot ulcer Operation: Aortogram, LLE angiogram Findings: PT runoff. One vessel Post-Operative Diagnosis: Same as Pre-op Surgeon: Bienvenido Gomez Anesthesia: Fractional Estimated Blood Loss (mls): 30 Operative Report Dictated: Yes
--- NOTE | 2016-08-09 13:19 | OP ---
DATE OF OPERATION: 08/09/2016 PREOPERATIVE DIAGNOSIS: Left heel diabetic foot ulcer. POSTOPERATIVE DIAGNOSIS: Left heel diabetic foot ulcer. PROCEDURE: Aortogram, left lower extremity angiogram. SURGEON: Bienvenido Steven MD ANESTHESIA: Fractional. BLOOD LOSS: 30 mL. INDICATIONS: The patient is a 66-year-old male who comes in with a left 5th toe ulcer and a heel diabetic foot ulcer. He had a CTA preoperatively performed showing tibial disease. So, it was decided that he would need an angiogram. Patient was consented for the procedure understanding all risks, benefits, and alternatives, then, taken to the operating room. PROCEDURE IN DETAIL: Once in the operating room, he was placed on the operating table in the supine manner, and the area of the right and left groin were prepped and draped in the sterile surgical manner. Then, under ultrasound guidance, we visualized the right common femoral artery, and 10 mL of 0.5% lidocaine was injected there. We then took our micropuncture needle and punctured the right common femoral artery, and a micropuncture wire inserted. A traditional 5-Guamanian sheath was inserted. A 0.035 floppy guidewire was then inserted into the aorta followed by an Merit catheter. We then shot an angiogram via hand injection through the Merit catheter, and the aorta and iliac arteries were without any disease. We then placed a 0.035 stiff guidewire into the left common femoral artery and our Merit catheter followed. We then shot an angiogram of the left lower extremity showing that the common femoral artery, the profunda, the SFA, and the popliteal artery were all patent. Patients primary runoff into the foot is the posterior tibial artery. There is no anterior tibial artery present, and the peroneal artery is present down to the distal calf. There were no areas of stenosis that need an angioplasty. At this point, we brought our Merit catheter up and over, and a StarClose device was deployed successfully in the right common femoral artery, and pressure was held for 5 minutes. Thereafter, the area was wet and dried, and Dermabond was placed. The patient tolerated the procedure with no complications. Patient transferred to PACU in stable condition. BIENVENIDO STEVEN DO [id number]
[2016-08-09] MEDS: FUROSEMIDE 40 MG/4 ML INJECTABLE VIAL IVPB SCH (13:40)
[2016-08-09] MEDS: LACTATED RINGERS SOLUTION 1,000 ML IV SCH (13:40)
[2016-08-09] MEDS: COLLAGENASE CLOSTRIDIUM HIST. 30 GRAMS TUBE TP SCH (13:41)
[2016-08-09] MEDS: CARVEDILOL 6.25 MG TABLET (FP) PO SCH ×2 (13:41→21:51)
[2016-08-09] MEDS: ASPIRIN COATED 81 MG TABLET.EC PO SCH (13:41)
[2016-08-09] MEDS: VANCOMYCIN 1,500 MG in DEXTROSE 5%-WATER - 500 ML IVPB SCH ×2 (13:41→21:50)
[2016-08-09] MEDS: LISINOPRIL 5 MG TABLET (FP) PO SCH (13:42)
--- NOTE | 2016-08-09 14:21 | PN ---
Progress Note (short form) - Note Progress Note: Subjective: The patient was seen and examined at the bedside, he is s/p angiogram LLE Current Medications Generic Name Dose Route Start Last Admin Trade Name Freq PRN Reason Stop Dose Admin Aspirin 81 mg 08/10/16 10:00 Ecotrin - PO DAILY [facility] Atorvastatin Calcium 40 mg 08/09/16 22:00 Lipitor - PO HS DIXIE Carvedilol 6.25 mg 08/09/16 22:00 Coreg - PO BID DIXIE Collagenase 1 applic 08/10/16 10:00 Santyl - TP DAILY [facility] Fentanyl 25 mcg 08/09/16 12:24 Sublimaze Injection - IVPUSH 08/12/16 12:11 [id number] PRN PAIN Furosemide 40 mg 08/09/16 14:00 08/09/16 13:40 Lasix Injection - IVPB 40 mg BID@0600,1400 DIXIE Administration Heparin Sodium (Porcine) 5,000 unit 08/09/16 14:00 08/09/16 13:40 Heparin - SQ 5,000 unit TID DIXIE Administration Lactated Ringer's 1,000 mls @ 75 mls/hr 08/09/16 12:24 08/09/16 13:40 Lactated Ringers Solution IV 75 mls/hr ASDIR DIXIE Administration Vancomycin HCl 1,500 mg/ 500 mls @ 250 mls/hr 08/09/16 21:30 Dextrose IVPB Q12H [facility] Protocol Piperacillin Sod/Tazobactam Sod 50 mls @ 100 mls/hr 08/09/16 18:00 Zosyn 3.375gm Ivpb (Pre-Docked) IVPB Q8H-IV [facility] Protocol Insulin Aspart 1 vial 08/09/16 16:30 Novolog Vial Sliding Scale - SQ ACHS [facility] Protocol Lisinopril 5 mg 08/10/16 10:00 Prinivil PO DAILY [facility] Ondansetron HCl 4 mg 08/09/16 12:24 Zofran Injection IVPUSH 08/09/16 18:11 Q6H PRN NAUSEA AND/OR VOMITING Objective: Vital Signs Period Temp Pulse Resp BP Sys/Gomes Pulse Ox Last 24 Hr 97.7 F-98.3 F 60-66 18-22 110-144/64-79 94-97 Physical Exam: General: Morbidly obese, NAD, A&OX3 Lungs: CTA bilaterally Heart: RRR, S1S2 Abd: Soft, non-tender, non-distended. Normoactive bowel sounds Ext: Warm, 2+ DP/PT bilaterally Neuro: CN 2-12 intact CBCD WBC 8.4 K/mm3 (4.0-10.0) 08/09/16 06:20 RBC 5.57 M/mm3 (4.00-5.60) 08/09/16 06:20 Hgb 15.4 GM/dL (11.7-16.9) 08/09/16 06:20 Hct 46.8 % (35.4-49) 08/09/16 06:20 MCV 84.0 fl (80-96) 08/09/16 06:20 MCHC 33.0 g/dl (32.0-35.9) 08/09/16 06:20 RDW 14.8 % (11.9-15.9) 08/09/16 06:20 Plt Count 315 K/MM3 (134-434) 08/09/16 06:20 MPV 7.2 fl (7.5-11.1) L 08/09/16 06:20 CMP Sodium 134 mmol/L (136-145) L 08/09/16 06:20 Potassium 4.3 mmol/L (3.5-5.1) 08/09/16 06:20 Chloride 91 mmol/L (98-107) L 08/09/16 06:20 Carbon Dioxide 30 mmol/L (21-32) 08/09/16 06:20 Anion Gap 13 (8-16) 08/09/16 06:20 BUN 16 mg/dL (7-18) 08/09/16 06:20 Creatinine 0.9 mg/dL (0.7-1.3) 08/09/16 06:20 Creat Clearance w eGFR > 60 (>60) 08/09/16 06:20 Random Glucose 113 mg/dL (74-106) H 08/09/16 06:20 Calcium 9.3 mg/dL (8.5-10.1) 08/09/16 06:20 Total Bilirubin 0.6 mg/dL (0.2-1.0) 08/09/16 06:20 AST 35 U/L (15-37) D 08/09/16 06:20 ALT 40 U/L (12-78) D 08/09/16 06:20 Alkaline Phosphatase 64 U/L (45-117) 08/09/16 06:20 Total Protein 7.3 g/dl (6.4-8.2) 08/09/16 06:20 Albumin 3.5 g/dl (3.4-5.0) 08/09/16 06:20 Microbiology 08/03/16 20:15 Blood - Peripheral Venous Blood Culture - Final NO GROWTH AFTER 5 DAYS INCUBATION 08/03/16 20:15 Blood - Peripheral Venous Blood Culture - Final NO GROWTH AFTER 5 DAYS INCUBATION 08/04/16 01:36 Foot - Left Heel Gram Stain - Final 08/04/16 01:36 Foot - Left Heel Wound Culture - Final Staphylococcus Coagulase Neg Enterobacter Cloacae 08/04/16 01:36 Foot - Left Lateral Gram Stain - Final 08/04/16 01:36 Foot - Left Lateral Wound Culture - Final NO GROWTH AFTER 48 HOURS INCUBATION Imaging: Left foot x-ray: soft tissue swelling. 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 MRI on nonemergent basis (6) extensive b/l inguinal and iliac chain bulky adenopathy up to 5.4cm on left and 3.0cm on right, inflammatory/infections v. neopolastic ECHO with left ventricle systolic function grossly normal. Left atrium is mildly dilated, moderate mitral annular calcification. Mild TR, mild aortic sclerosis Assessment: This is a 66 year old male with PMHx of HTN, hyperlipidemia, CAD s/ p multiple cardiac stenting and CABG x2, systolic and diastolic heart failure, NIDDM, chronic left foot ulcers, hx of non-compliance, current cigarette smoker , who presented to the ED from the wound clinic for wound on his left foot 5th toe. Plan: 1) Chronic left foot ulcers - Per PASTRY DECORATOR note from 08/08: discussed with [facility] ([facility] who states x-ray left foot from recent admission 07/25/16-07/30/16 does not suggest osteo. Had MRI 2015 that was negative for osteo of left foot - Awaiting triple phase bone scan, cannot perform MRI as the patient has a hx of multiple cardiac stents but is unaware of the type or if MRI compatible - Wound culture as above - Continue Zosyn - Continue Vancomycin - Left lower extremity doppler negative for DVT - Appreciate ID consult 2) B/l lower extremity aterosclerotic disease and stenosis - S/p angiogram today, no disease to perform angioplasty - Local wound care - Continue ASA - Continue Statin 3) Inguinal and iliac chain bulky adenopathy - As evidence on CTA - F/u tissue biopsy 4) HTN - Continue Coreg - Continue Lisinopril Hyperlipidemia - Continue statin CAD - Continue ASA, statin, coreg 5) Chronic diastolic heart failure - 08/05 echo: LV function grossly normal, RWMA cannot be excluded, EF 53%; RV not well-visualized; LA mildly dilated; trace MR; mild TR; mild AI; trivial pericardial effusion - 08/08 CXR: congestion left lung, possible infiltrate - Continue Lasix 6) F/E/N: - Monitor electrolytes - Diabetic/sodium controlled diet 7) Prophylaxis: - OOB ambulating - Heparin 5,000u sq tid 8) Dispo: - Requires continued inpatient care CODE STATUS: FULL CODE Visit type - Emergency Visit Emergency Visit: Yes ED Registration Date: 08/04/16 Care time: The patient presented to the Emergency Department on the above date and was hospitalized for further evaluation of their emergent condition. - New Patient This patient is new to me today: Yes Date on this admission: 08/09/16 - Critical Care Critical Care patient: No
[2016-08-09] MEDS: ATORVASTATIN CA 40 MG TABLET (FP) PO SCH (21:51)
[2016-08-10] MEDS: PIPERACILLIN/TAZOB 3.375 GM 50 ML IVPB SCH ×3 (02:10→19:03)
[2016-08-10] MEDS: FUROSEMIDE 40 MG/4 ML INJECTABLE VIAL IVPB SCH ×2 (05:53→15:00)
[2016-08-10] MEDS: HEPARIN NA (PORCINE) 5,000 UNITS/ML 1ML VIAL SQ SCH ×3 (05:53→21:07)
[2016-08-10] MEDS: LACTATED RINGERS SOLUTION 1,000 ML IV SCH ×2 (06:01→13:57)
[2016-08-10] MEDS: INSULIN SLIDING SCALE (NOVOLOG) 1 VIAL SQ SCH ×4 (06:02→21:09)
[2016-08-10] MEDS: VANCOMYCIN 1,500 MG in DEXTROSE 5%-WATER - 500 ML IVPB SCH ×2 (08:57→20:48)
[2016-08-10] MEDS: LISINOPRIL 5 MG TABLET (FP) PO SCH (11:55)
[2016-08-10] MEDS: CARVEDILOL 6.25 MG TABLET (FP) PO SCH ×2 (11:55→21:07)
[2016-08-10] MEDS: ASPIRIN COATED 81 MG TABLET.EC PO SCH (11:56)
--- NOTE | 2016-08-10 14:01 | PN ---
Progress Note (short form) - Note Progress Note: Anesthesia postop note 66 y/o M s/p MAC for aortogram/angiogram POD#1, vss, aaox3, no complaints. No anesthesia complications.
--- NOTE | 2016-08-10 14:19 | PN ---
Progress Note (short form) - Note Progress Note: Subjective: The patient was seen and examined at the bedside, he has no complaints at this time Current Medications Generic Name Dose Route Start Last Admin Trade Name Guy PRN Reason Stop Dose Admin Aspirin 81 mg 08/10/16 10:00 08/10/16 11:56 Ecotrin - PO 81 mg DAILY DIXIE Administration Atorvastatin Calcium 40 mg 08/09/16 22:00 08/09/16 21:51 Lipitor - PO 40 mg HS DIXIE Administration Carvedilol 6.25 mg 08/09/16 22:00 08/10/16 11:55 Coreg - PO 6.25 mg BID DIXIE Administration Collagenase 1 applic 08/10/16 10:00 Santyl - TP DAILY DIXIE Furosemide 40 mg 08/09/16 14:00 08/10/16 05:53 Lasix Injection - IVPB 40 mg BID@0600,1400 DIXIE Administration Heparin Sodium (Porcine) 5,000 unit 08/09/16 14:00 08/10/16 13:53 Heparin - SQ 5,000 unit TID DIXIE Administration Lactated Ringer's 1,000 mls @ 75 mls/hr 08/09/16 12:24 08/10/16 13:57 Lactated Ringers Solution IV Not Given ASDIR DIXIE Vancomycin HCl 1,500 mg/ 500 mls @ 250 mls/hr 08/09/16 21:30 08/10/16 08:57 Dextrose IVPB 250 mls/hr Q12H DIXIE Administration Protocol Piperacillin Sod/Tazobactam Sod 50 mls @ 100 mls/hr 08/09/16 18:00 08/10/16 13: 49 Zosyn 3.375gm Ivpb (Pre-Docked) IVPB 100 mls/hr Q8H-IV DIXIE Administration Protocol Insulin Aspart 1 vial 08/09/16 16:30 08/10/16 12:00 Novolog Vial Sliding Scale - SQ 8 unit ACHS DIXIE Administration Protocol Lisinopril 5 mg 08/10/16 10:00 08/10/16 11:55 Prinivil PO 5 mg DAILY DIXIE Administration Objective: Vital Signs Period Temp Pulse Resp BP Sys/Gomes Pulse Ox Last 24 Hr 97.7 F-98.0 F 62-69 17-20 102-134/50-65 Physical Exam: General: Morbidly obese, NAD, A&OX3 Lungs: CTA bilaterally Heart: RRR, S1S2 Abd: Soft, non-tender, non-distended. Normoactive bowel sounds Ext: Left leg dressing, c/d/i. Warm, 2+ DP/PT bilaterally Neuro: CN 2-12 intact CBCD WBC 8.4 K/mm3 (4.0-10.0) 08/09/16 06:20 RBC 5.57 M/mm3 (4.00-5.60) 08/09/16 06:20 Hgb 15.4 GM/dL (11.7-16.9) 08/09/16 06:20 Hct 46.8 % (35.4-49) 08/09/16 06:20 MCV 84.0 fl (80-96) 08/09/16 06:20 MCHC 33.0 g/dl (32.0-35.9) 08/09/16 06:20 RDW 14.8 % (11.9-15.9) 08/09/16 06:20 Plt Count 315 K/MM3 (134-434) 08/09/16 06:20 MPV 7.2 fl (7.5-11.1) L 08/09/16 06:20 CMP Sodium 134 mmol/L (136-145) L 08/09/16 06:20 Potassium 4.3 mmol/L (3.5-5.1) 08/09/16 06:20 Chloride 91 mmol/L (98-107) L 08/09/16 06:20 Carbon Dioxide 30 mmol/L (21-32) 08/09/16 06:20 Anion Gap 13 (8-16) 08/09/16 06:20 BUN 16 mg/dL (7-18) 08/09/16 06:20 Creatinine 0.9 mg/dL (0.7-1.3) 08/09/16 06:20 Creat Clearance w eGFR > 60 (>60) 08/09/16 06:20 Random Glucose 113 mg/dL (74-106) H 08/09/16 06:20 Calcium 9.3 mg/dL (8.5-10.1) 08/09/16 06:20 Total Bilirubin 0.6 mg/dL (0.2-1.0) 08/09/16 06:20 AST 35 U/L (15-37) D 08/09/16 06:20 ALT 40 U/L (12-78) D 08/09/16 06:20 Alkaline Phosphatase 64 U/L (45-117) 08/09/16 06:20 Total Protein 7.3 g/dl (6.4-8.2) 08/09/16 06:20 Albumin 3.5 g/dl (3.4-5.0) 08/09/16 06:20 Microbiology 08/03/16 20:15 Blood - Peripheral Venous Blood Culture - Final NO GROWTH AFTER 5 DAYS INCUBATION 08/03/16 20:15 Blood - Peripheral Venous Blood Culture - Final NO GROWTH AFTER 5 DAYS INCUBATION 08/04/16 01:36 Foot - Left Heel Gram Stain - Final 08/04/16 01:36 Foot - Left Heel Wound Culture - Final Staphylococcus Coagulase Neg Enterobacter Cloacae 08/04/16 01:36 Foot - Left Lateral Gram Stain - Final 08/04/16 01:36 Foot - Left Lateral Wound Culture - Final NO GROWTH AFTER 48 HOURS INCUBATION Imaging: Left foot x-ray: soft tissue swelling. 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 MRI on nonemergent basis (6) extensive b/l inguinal and iliac chain bulky adenopathy up to 5.4cm on left and 3.0cm on right, inflammatory/infections v. neopolastic ECHO with left ventricle systolic function grossly normal. Left atrium is mildly dilated, moderate mitral annular calcification. Mild TR, mild aortic sclerosis Assessment: This is a 66 year old male with PMHx of HTN, hyperlipidemia, CAD s/ p multiple cardiac stenting and CABG x2, systolic and diastolic heart failure, NIDDM, chronic left foot ulcers, hx of non-compliance, current cigarette smoker , who presented to the ED from the wound clinic for wound on his left foot 5th toe. Plan: 1) Chronic left foot ulcers - Per [employer] note from 08/08: discussed with Dr. Davies (vascular surgery at [facility]) who states x-ray left foot from recent admission 07/25/16-07/30/16 does not suggest osteo. Had MRI 2015 that was negative for osteo of left foot - Awaiting triple phase bone scan, cannot perform MRI as the patient has a hx of multiple cardiac stents but is unaware of the type or if MRI compatible - Wound culture as above - Continue Zosyn - Continue Vancomycin - Left lower extremity doppler negative for DVT - Appreciate ID consult 2) B/l lower extremity aterosclerotic disease and stenosis - S/p angiogram 08/09, no disease to perform angioplasty - Local wound care - Continue ASA - Continue Statin 3) Inguinal and iliac chain bulky adenopathy - As evidence on CTA - F/u tissue biopsy as ordered 4) HTN - Continue Coreg - Continue Lisinopril Hyperlipidemia - Continue statin CAD - Continue ASA, statin, coreg 5) Chronic diastolic heart failure - 08/05 echo: LV function grossly normal, RWMA cannot be excluded, EF 53%; RV not well-visualized; LA mildly dilated; trace MR; mild TR; mild AI; trivial pericardial effusion - 08/08 CXR: congestion left lung, possible infiltrate - Continue Lasix 6) F/E/N: - Monitor electrolytes - Diabetic/sodium controlled diet 7) Prophylaxis: - OOB ambulating - Heparin 5,000u sq tid 8) Dispo: - Requires continued inpatient care CODE STATUS: FULL CODE Visit type - Emergency Visit Emergency Visit: Yes ED Registration Date: 08/04/16 Care time: The patient presented to the Emergency Department on the above date and was hospitalized for further evaluation of their emergent condition. - New Patient This patient is new to me today: No - Critical Care Critical Care patient: No
[2016-08-10] MEDS: COLLAGENASE CLOSTRIDIUM HIST. 30 GRAMS TUBE TP SCH (16:10)
--- NOTE | 2016-08-10 16:29 | PN ---
Progress Note, Physician History of Present Illness: S/P angiogram, wound debridement No c/o pain No fever/ chills Bone scan pending - Current Medication List Current Medications: Active Medications Aspirin (Ecotrin -) 81 mg PO DAILY [facility] Last Admin: 08/10/16 11:56 Dose: 81 mg Atorvastatin Calcium (Lipitor -) 40 mg PO HS [facility] Last Admin: 08/09/16 21:51 Dose: 40 mg Carvedilol (Coreg -) 6.25 mg PO BID [facility] Last Admin: 08/10/16 11:55 Dose: 6.25 mg Collagenase (Santyl -) 1 applic TP DAILY [facility] Last Admin: 08/10/16 16:10 Dose: 1 appful Furosemide (Lasix Injection -) 40 mg IVPB BID@0600,1400 [facility] Last Admin: 08/10/16 15:00 Dose: 40 mg Heparin Sodium (Porcine) (Heparin -) 5,000 unit SQ TID [facility] Last Admin: 08/10/16 13:53 Dose: 5,000 unit Lactated Ringer's (Lactated Ringers Solution) 1,000 mls @ 75 mls/hr IV ASDIR [facility] Last Admin: 08/10/16 13:57 Dose: Not Given Vancomycin HCl 1,500 mg/ (Dextrose) 500 mls @ 250 mls/hr IVPB Q12H [facility] PRN Reason: Protocol Last Admin: 08/10/16 08:57 Dose: 250 mls/hr Piperacillin Sod/Tazobactam Sod (Zosyn 3.375gm Ivpb (Pre-Docked)) 50 mls @ 100 mls/hr IVPB Q8H-IV [facility] PRN Reason: Protocol Last Admin: 08/10/16 13:49 Dose: 100 mls/hr Insulin Aspart (Novolog Vial Sliding Scale -) 1 vial SQ ACHS [facility] PRN Reason: Protocol Last Admin: 08/10/16 16:11 Dose: Not Given Lisinopril (Prinivil) 5 mg PO DAILY [facility] Last Admin: 08/10/16 11:55 Dose: 5 mg - Objective Vital Signs: Vital Signs Temperature 97.9 F 08/10/16 14:41 Pulse Rate 66 08/10/16 14:41 Respiratory Rate 17 08/10/16 06:23 Blood Pressure 107/57 08/10/16 14:41 O2 Sat by Pulse Oximetry (%) 97 08/09/16 13:23 Constitutional: Yes: No Distress, Obese Eyes: Yes: Conjunctiva Clear Cardiovascular: Yes: Regular Rate and Rhythm, S1, S2 Respiratory: Yes: CTA Bilaterally Gastrointestinal: Yes: Normal Bowel Sounds, Soft, Abdomen, Obese. No: Tenderness Extremities: Yes: Other (L heel ulcer, L 5th toe ulcer no drainage) Labs: CBC, BMP 08/09/16 06:20 08/09/16 06:20 INR, PTT INR 1.19 (0.82-1.09) H 08/06/16 06:30 Assessment/Plan Infected diabetic foot ulcers Probable Osteomyelitis Continue zosyn/ vancomycin Await bone scan Local wound care
[2016-08-10] MEDS: ATORVASTATIN CA 40 MG TABLET (FP) PO SCH (21:07)
[2016-08-10] MEDS ORDERED: INSULIN (NOVOLOG) ASPART 100 UNITS/ML 10ML VIAL ONE (21:09)
[2016-08-11] MEDS: PIPERACILLIN/TAZOB 3.375 GM 50 ML IVPB SCH ×2 (01:13→12:15)
[2016-08-11] MEDS: INSULIN SLIDING SCALE (NOVOLOG) 1 VIAL SQ SCH ×3 (06:07→18:26)
[2016-08-11] MEDS: HEPARIN NA (PORCINE) 5,000 UNITS/ML 1ML VIAL SQ SCH ×2 (06:13→14:00)
[2016-08-11] MEDS: FUROSEMIDE 40 MG/4 ML INJECTABLE VIAL IVPB SCH ×2 (06:13→14:00)
[2016-08-11] MEDS: VANCOMYCIN 1,500 MG in DEXTROSE 5%-WATER - 500 ML IVPB SCH (09:01)
[2016-08-11] MEDS: COLLAGENASE CLOSTRIDIUM HIST. 30 GRAMS TUBE TP SCH (10:00)
[2016-08-11] MEDS ORDERED: PICC LINE 8 ML FLUSH PROTOCOL IVPUSH PRN (10:45)
--- NOTE | 2016-08-11 11:41 | PN ---
Physical Exam: SUBJECTIVE: Patient seen and examined S/P angiogram, wound debridement Denies pain, fever and chills. Bone scan calcaneum osteomilitis. OBJECTIVE: Vital Signs Period Temp Pulse Resp BP Sys/Gomes Pulse Ox Last 24 Hr 97.9 F-98.6 F 60-66 17-20 98-107/47-61 95 Lungs: b/l air entry present, no wheez. Heart: S1S2 normal Abd: Soft, non-tender, non-distended. Normoactive bowel sounds Ext: ulcer present on heel of left foot granulation tissue present. ulcer also present on dorsum of fifth digit. Laboratory Results - last 24 hr 08/10/16 08/10/16 08/10/16 11:58 16:01 21:05 POC Glucometer 410 87 153 08/11/16 05:56 POC Glucometer 121 Active Medications Generic Name Dose Route Start Last Admin Trade Name Freq PRN Reason Stop Dose Admin Aspirin 81 mg 08/10/16 10:00 08/10/16 11:56 Ecotrin - PO 81 mg DAILY DIXIE Administration Atorvastatin Calcium 40 mg 08/09/16 22:00 08/10/16 21:07 Lipitor - PO 40 mg HS DIXIE Administration Carvedilol 6.25 mg 08/09/16 22:00 08/10/16 21:07 Coreg - PO 6.25 mg BID DIXIE Administration Collagenase 1 applic 08/10/16 10:00 08/10/16 16:10 Santyl - TP 1 appful DAILY DIXIE Administration Furosemide 40 mg 08/09/16 14:00 08/11/16 06:13 Lasix Injection - IVPB 40 mg BID@0600,1400 DIXIE Administration Heparin Sodium (Porcine) 5,000 unit 08/09/16 14:00 08/11/16 06:13 Heparin - SQ 5,000 unit TID DIXIE Administration IV Flush 8 ml 08/11/16 10:45 Picc Line Flush IVPUSH PRN PRN Protocol Piperacillin Sod/Tazobactam Sod 50 mls @ 100 mls/hr 08/09/16 18:00 08/11/16 01: 13 Zosyn 3.375gm Ivpb (Pre-Docked) IVPB 100 mls/hr Q8H-IV DIXIE Administration Protocol Insulin Aspart 1 vial 08/09/16 16:30 08/11/16 06:07 Novolog Vial Sliding Scale - SQ Not Given ACHS DIXIE Protocol Lisinopril 5 mg 08/10/16 10:00 08/10/16 11:55 Prinivil PO 5 mg DAILY DIXIE Administration ASSESSMENT/PLAN: Infected diabetic foot ulcers calcaneum Osteomyelitis Plan Need long course antibiotic, will treat him on Vancomycin 1500 mg daily and zosyn 4.45 q8h daily for 4-6 week. Continue zosyn/ vancomycin wound care. Repeat ESR and CRP after 7 days. Monitor vancomycin level and renal function in fci. Visit type - Emergency Visit Emergency Visit: Yes ED Registration Date: 08/04/16 Care time: The patient presented to the Emergency Department on the above date and was hospitalized for further evaluation of their emergent condition. - New Patient This patient is new to me today: No - Critical Care Critical Care patient: No
[2016-08-11] MEDS: LISINOPRIL 5 MG TABLET (FP) PO SCH (12:15)
[2016-08-11] MEDS: ASPIRIN COATED 81 MG TABLET.EC PO SCH (12:15)
[2016-08-11] MEDS: CARVEDILOL 6.25 MG TABLET (FP) PO SCH (12:15)
[2016-08-11 14:40] VITALS: BP 110/58; PULSE 67; TEMP 98
[2016-08-11] MEDS ORDERED: VANCOMYCIN 1,500 MG in DEXTROSE 5%-WATER - 250 ML IVPB SCH (15:30)
[2016-08-11] MEDS ORDERED: [UNRECOGNIZED DRUG - OTHER] IVPB SCH (15:58)
[2016-08-11] MEDS ORDERED: VANCOMYCIN IVPB SCH (15:58)
--- NOTE | 2016-08-11 16:03 | DS ---
Physical Examination Vital Signs: Vital Signs Temperature 98.0 F 08/11/16 14:39 Pulse Rate 67 08/11/16 14:39 Respiratory Rate 18 08/11/16 09:00 Blood Pressure 110/58 08/11/16 14:39 O2 Sat by Pulse Oximetry (%) 95 08/11/16 09:00 Findings/Remarks: Physical Exam: General: Morbidly obese, NAD, A&OX3 Lungs: CTA bilaterally Heart: RRR, S1S2 Abd: Soft, non-tender, non-distended. Normoactive bowel sounds Ext: Left leg dressing, c/d/i. Warm, 2+ DP/PT bilaterally Neuro: CN 2-12 intact Labs: CBC, BMP 08/09/16 06:20 08/09/16 06:20 Discharge Summary Reason For Visit: WOUND INFECTION CELLULITIS Current Active Problems Cellulitis (Acute) Preop cardiovascular exam (Acute) Wound infection (Acute) Hospital Course: This is a 66 year old male with PMHx of HTN, hyperlipidemia, CAD s/p multiple cardiac stenting and CABG x2, systolic and diastolic heart failure, NIDDM, chronic left foot ulcers, hx of non-compliance, current cigarette smoker, who presented to the ED from the wound clinic for wound on his left foot 5th toe. Imaging: Left foot x-ray: soft tissue swelling. 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 MRI on nonemergent basis (6) extensive b/l inguinal and iliac chain bulky adenopathy up to 5.4cm on left and 3.0cm on right, inflammatory/infections v. neopolastic ECHO with left ventricle systolic function grossly normal. Left atrium is mildly dilated, moderate mitral annular calcification. Mild TR, mild aortic sclerosis Left lower extremity doppler negative for DVT Plan: 1) Left foot osteomyelitis - Wound culture Staphylococcus Coagulase Neg, Enterobacter Cloacae - Continue Zosyn - Continue Vancomycin - Appreciate ID consult 2) B/l lower extremity aterosclerotic disease and stenosis - S/p angiogram 08/09, no disease to perform angioplasty - Local wound care - Continue ASA - Continue Statin 3) Inguinal and iliac chain bulky adenopathy - As evidence on CTA - Lymph node biopsy not performed while inpatient. Instructed the patient to have his primary care physician coordinate a biopsy with Dr. Del Rio and to follow-up results 4) HTN - Continue Coreg - Continue Lisinopril Hyperlipidemia - Continue statin CAD - Continue ASA, statin, coreg 5) Chronic diastolic heart failure - 08/05 echo: LV function grossly normal, RWMA cannot be excluded, EF 53%; RV not well-visualized; LA mildly dilated; trace MR; mild TR; mild AI; trivial pericardial effusion - 08/08 CXR: congestion left lung, possible infiltrate - Patient appears euvolemic, will discontinue Lasix and have the patient follow- up with cardiology Please follow-up with ID, vascular surgery, pcp, podiatry, cardiology, as indicated. Please return to the ED with new, persistent, or worsening symptoms. This discharge took 45 minutes to complete. Condition: Fair - Home Medications Comprehensive Discharge Medication List: Ambulatory Orders Carvedilol [Coreg -] 6.25 mg PO Q12H 08/04/16 Lisinopril 5 mg PO DAILY 08/04/16 Aspirin Coated [Ecotrin -] 81 mg PO DAILY tab 08/11/16 Atorvastatin Ca [Lipitor] 40 mg PO HS tablet 08/11/16 Heparin - 5,000 unit SQ TID vial 08/11/16 Picc Line Flush [Picc Line Flush -] 8 ml IVPUSH PRN PRN #0 ml 08/11/16
--- NOTE | 2016-08-11 16:17 | PN ---
Teaching Attending Note Name of Resident: Nick Washington ATTENDING PHYSICIAN STATEMENT I saw and evaluated the patient. I reviewed the resident's note and discussed the case with the resident. I agree with the resident's findings and plan as documented. SUBJECTIVE: OBJECTIVE: ASSESSMENT AND PLAN: Infected diabetic foot ulcers Calcaneal osteomyelitis For PICC OK for discharge on zosyn 4.5gm IVPB q8h + vancomycin 1500mg IVPB q24h Complete 6 week course
[2016-08-11] MEDS ORDERED: PIPERACILLIN/TAZOB 4.5 GM 100 ML IVPB SCH (18:00)
== END 2016-08-11 21:00 | DRG 638 ==
LOC: JER 17:17 → JERBED 08-04 → UNDOADMIN 08-04 00:27 → JERBED 08-04 00:27 → J6S 08-04 13:14
PROVIDERS: ADMIT Internal Medicine; ATTEND Registered Nurse
PROC: B41DYZZ Fluoroscopy of Aorta and Bilateral Lower Extremity Arteries using Other Contrast (ICD-10-PCS; principal; 2016-08-09 09:00)
PROC: 02HV33Z Insertion of Infusion Device into Superior Vena Cava, Percutaneous Approach (ICD-10-PCS; 2016-08-11)
DX: E11.621 Type 2 diabetes mellitus with foot ulcer (principal); L97.429 Non-pressure chronic ulcer of left heel and midfoot with unspecified severity; M86.9 Osteomyelitis, unspecified; Z68.43 Body mass index [BMI] 50.0-59.9, adult; L03.116 Cellulitis of left lower limb; I50.32 Chronic diastolic (congestive) heart failure; E11.69 Type 2 diabetes mellitus with other specified complication; E66.01 Morbid (severe) obesity due to excess calories; F17.210 Nicotine dependence, cigarettes, uncomplicated; E78.5 Hyperlipidemia, unspecified; I25.10 Atherosclerotic heart disease of native coronary artery without angina pectoris; Z98.61 Coronary angioplasty status; Z95.1 Presence of aortocoronary bypass graft; I11.0 Hypertensive heart disease with heart failure
CPT/HCPCS: 36415; 36569; 71010-TC; 71020-TC; 73630-TC-LT; 75635-TC; 76000-TC; 77001-TC; 78315-TC; 80048; 80053; 80076; 83036; 83615; 83735; 83880; 84100; 85025; 85610; 85651; 86140; 87040; 87070; 87077; 87186; 87205; 93005; 93010; 93306-TC; 93971-TC; 94760; 97116-GP; 99284-25; A9503; C1751; G0463-25; G0480; J1644